=== PATIENT | male | born 1935 | race Caucasian/White ===

== ENCOUNTER 2017-05-25 08:14 | Inpatient (IN) ==
--- NOTE | 2017-05-25 08:56 | Diag Imaging Result Doc PS360 ---
EXAM: CHEST-PORTABLE HISTORY: sob/cp TECHNIQUE: AP portable upright at 0840 COMMENT: The patient is rotated slightly to the right. There are severe degenerative changes in the right shoulder. The heart size and pulmonary vascularity are within normal limits. There are no previous studies. There is no evidence of acute pulmonary disease. IMPRESSION: No acute disease. Electronically signed by Artis Avery 05/25/2017 8:53 AM
[2017-05-25 09:03] LABS: BASO% 0.1 % (0.0-0.8); EOS# 0.02 X1000 (0.0-0.7); EOS% 0.1 % (0.0-10.0); HEMATOCRIT 32.7 % (42.0-52.0); HEMOGLOBIN 10.3 g/dL (14.0-18.0); IMM GRAN# 0.46 X1000 (0.0-0.04); IMM GRAN% 1.6 % (0.0-0.5); LYMPH# 1.28 X1000 (1.2-3.4); LYMPH% 4.4 % (20.5-51.1); MANUAL DIFF NEEDED? NO; MCH 31.1 PG (27-31); MCHC 31.5 g/dL (33-37); MCV 98.8 FL (81-99); MONO# 1.26 X1000 (0.11-0.59); MONO% 4.3 % (1.7-9.3); MPV 9.5 FL (7.4-10.4); NEUT% 89.5 % (42.2-75.2); PLT 437 X1000 (130-400); RBC 3.31 XMIL (4.7-6.1)
[2017-05-25 09:11] LABS: INR 1.15; PROTIME 12.2 Seconds (9.2-11.7); PTT 29.3 Seconds (22.0-36.0)
[2017-05-25] MEDS ORDERED: NS 1,000 ML IV ONE (09:44)
[2017-05-25] MEDS ORDERED: ZOSYN 3.375 GM in NS 50 ML IV ONE (09:45)
[2017-05-25 10:09] LABS: ALBUMIN 2.9 g/dL (3.5-5.0); CALCIUM 9.3 mg/dL (8.8-10.2); MAGNESIUM 1.9 mg/dL (1.5-2.7); POTASSIUM 4.2 mmol/L (3.5-5.1); TOTAL BILIRUBIN 0.63 mg/dL (0.20-1.00); TOTAL PROTEIN 6.9 g/dL (6.3-8.3)
[2017-05-25 10:59] LABS: URINE CULTURE NEEDED? NO; URINE MICRO REVIEW NEEDED? NO; URINE SOURCE CATH
[2017-05-25 11:03] LABS: UR EPITHELIAL CELLS <10 /HPF (<10); URINE BACTERIA NEGATIVE /HPF; URINE RBC <10 /HPF (<10); URINE WBC <10 /HPF (<10)
[2017-05-25 11:04] LABS: BILIRUBIN URINE NEGATIVE (NEGATIVE); BLOOD URINE MODERATE (NEGATIVE); COLOR YELLOW; GLUCOSE URINE 200 mg/dL (NEGATIVE); LEUKOCYTES URINE NEGATIVE (NEGATIVE); NITRITE URINE NEGATIVE (NEGATIVE); PH URINE 5.5; PROTEIN URINE 50 mg/dL (NEGATIVE); SP GRAVITY URINE 1.011; TURBIDITY URINE CLEAR (CLEAR); UROBILINOGEN URINE NORMAL (NORMAL)
[2017-05-25] MEDS ORDERED: ZOFRAN IV PRN (12:39)
[2017-05-25] MEDS: LEVAQUIN 250 MG/D5W 250 MG/50 ML IVPB IV SCH (13:33)
[2017-05-25] MEDS: NS 1,000 ML IV SCH ×2 (13:33→23:35)
[2017-05-25] MEDS: ZOSYN 2.25 GM in NS 50 ML IV SCH ×2 (16:54→22:21)
[2017-05-25] MEDS: PERCOCET-5 PO PRN (23:39)
[2017-05-26] MEDS: ZOSYN 2.25 GM in NS 50 ML IV SCH ×4 (05:53→22:39)
[2017-05-26] MEDS: PERCOCET-5 PO PRN ×4 (05:54→21:39)
[2017-05-26] MEDS: SYNTHROID PO SCH (06:00)
[2017-05-26] MEDS: NS 1,000 ML IV SCH ×3 (08:17→22:39)
[2017-05-26] MEDS: PREDNISONE PO SCH (08:18)
--- NOTE | 2017-05-26 09:31 | Diag Imaging Result Doc PS360 ---
EXAM: CHEST-2 VIEWS HISTORY: cough, R side wheeze TECHNIQUE: AP and lateral chest COMMENT: There is considerable motion artifact on the lateral view. The lungs are not as well-expanded as on 05/25/2017. Possibility of mild or early pulmonary edema cannot be excluded. The heart size remains enlarged. IMPRESSION: Poor inspiration. Questionable pulmonary edema. Electronically signed by Artis Avery 05/26/2017 9:29 AM
[2017-05-26] MEDS: DUONEB (A & A) INH SCH ×3 (09:39→20:33)
[2017-05-27] MEDS: PERCOCET-5 PO PRN ×5 (01:40→19:10)
[2017-05-27] MEDS: NS 1,000 ML IV SCH ×3 (02:20→12:03)
[2017-05-27] MEDS: ZOSYN 2.25 GM in NS 50 ML IV SCH ×4 (05:52→22:38)
[2017-05-27] MEDS: SYNTHROID PO SCH (06:01)
[2017-05-27 07:04] LABS: EOS# 0.02 X1000 (0.0-0.7); EOS% 0.1 % (0.0-10.0); HEMATOCRIT 24.6 % (42.0-52.0); HEMOGLOBIN 7.8 g/dL (14.0-18.0); IMM GRAN# 0.21 X1000 (0.0-0.04); IMM GRAN% 0.9 % (0.0-0.5); LYMPH# 0.76 X1000 (1.2-3.4); LYMPH% 3.4 % (20.5-51.1); MCH 31.5 PG (27-31); MCHC 31.7 g/dL (33-37); MCV 99.2 FL (81-99); MONO# 0.83 X1000 (0.11-0.59); MONO% 3.7 % (1.7-9.3); MPV 9.3 FL (7.4-10.4); NEUT% 91.9 % (42.2-75.2); PLT 312 X1000 (130-400); RBC 2.48 XMIL (4.7-6.1)
[2017-05-27 07:15] LABS: CALCIUM 8.3 mg/dL (8.8-10.2); POTASSIUM 3.4 mmol/L (3.5-5.1)
[2017-05-27 07:30] LABS: MANUAL DIFF NEEDED? NO
[2017-05-27] MEDS: DUONEB (A & A) INH SCH ×3 (07:45→20:00)
[2017-05-27 08:50] LABS: IRON SATURATION 25 %; TIBC 137 ug/dL; TOTAL IRON 34 ug/dL (53-167); UNBOUND IRON 103 ug/dL (112-346)
[2017-05-27] MEDS ORDERED: POTASSIUM CHLORIDE 20% LIQUID PO ONE (08:53)
[2017-05-27] MEDS: PREDNISONE PO SCH (10:11)
[2017-05-27] MEDS: LEVAQUIN 250 MG/D5W 250 MG/50 ML IVPB IV SCH (14:15)
[2017-05-28] MEDS: PERCOCET-5 PO PRN ×2 (00:28→05:44)
[2017-05-28] MEDS: ZOSYN 2.25 GM in NS 50 ML IV SCH ×4 (05:44→22:56)
[2017-05-28] MEDS: NS 1,000 ML IV SCH ×2 (06:33)
[2017-05-28] MEDS: SYNTHROID PO SCH (06:33)
[2017-05-28 06:36] LABS: EOS# 0.03 X1000 (0.0-0.7); EOS% 0.1 % (0.0-10.0); HEMATOCRIT 27.4 % (42.0-52.0); HEMOGLOBIN 8.5 g/dL (14.0-18.0); LYMPH# 0.91 X1000 (1.2-3.4); LYMPH% 4.2 % (20.5-51.1); MANUAL DIFF NEEDED? YES; MCH 31.6 PG (27-31); MCV 101.9 FL (81-99); MONO# 0.81 X1000 (0.11-0.59); MONO% 3.7 % (1.7-9.3); MPV 9.1 FL (7.4-10.4); PLT 324 X1000 (130-400); RBC 2.69 XMIL (4.7-6.1)
[2017-05-28 06:57] LABS: CALCIUM 8.9 mg/dL (8.8-10.2); POTASSIUM 3.8 mmol/L (3.5-5.1)
[2017-05-28 07:35] LABS: LYMPHS 10 % (21-51); MONO 2 % (1-9)
[2017-05-28] MEDS: DUONEB (A & A) INH SCH ×3 (08:14→20:00)
[2017-05-28] MEDS: TYLENOL PO PRN (08:45)
[2017-05-28] MEDS: PREDNISONE PO SCH (08:45)
[2017-05-28] MEDS ORDERED: KLONOPIN PO ONE (09:08)
[2017-05-28] MEDS ORDERED: ROXICET PO ONE (09:08)
[2017-05-28] MEDS ORDERED: ROXICET PO SCH (09:15)
[2017-05-28] MEDS: PLAVIX PO SCH (11:03)
[2017-05-28] MEDS: HYDROCODONE/APAP 7.5-325/15 ML PO PRN ×3 (11:04→20:49)
[2017-05-28] MEDS: TRENTAL PO SCH ×2 (13:19→20:49)
[2017-05-28] MEDS: NEURONTIN PO SCH ×2 (13:19→20:49)
--- NOTE | 2017-05-28 14:33 | Diag Imaging Result Doc PS360 ---
US RENAL 2 (RETROPER) COMPLETE - 05/28/2017 INDICATION: decreased renal function TECHNIQUE: COMPARISON: None FINDINGS: The kidneys are extremely hyperechogenic. The kidneys are also atrophic and multicystic. There are several cysts measuring up to 2 cm bilaterally. There are also bilateral nonobstructing renal stones. This measures 13 mm on the right and 7 mm on the left. No hydronephrosis. The urinary bladder is collapsed by a Whatley catheter and otherwise normal. The right kidney measures 9.8 x 3.8 x 5 cm. Cortex measures 7 mm. The left kidney measures 9 x 4.3 x 4.1 cm. Cortex measures 6 mm. IMPRESSION: 1. Severe bilateral renal atrophy and hyperechogenicity. 2. Multicystic kidneys. 3. Bilateral nonobstructing renal stones. Electronically signed by Star Torrez 05/28/2017 2:31 PM
[2017-05-28] MEDS: KLONOPIN PO SCH (20:49)
[2017-05-29] MEDS: SYNTHROID PO SCH ×2 (05:22→06:33)
[2017-05-29] MEDS: ZOSYN 2.25 GM in NS 50 ML IV SCH ×3 (05:22→16:20)
[2017-05-29 07:03] LABS: HEMATOCRIT 25.4 % (42.0-52.0); HEMOGLOBIN 7.8 g/dL (14.0-18.0); MCH 31.5 PG (27-31); MCHC 30.7 g/dL (33-37); MCV 102.4 FL (81-99); RBC 2.48 XMIL (4.7-6.1)
[2017-05-29 07:21] LABS: ALBUMIN 2.5 g/dL (3.5-5.0); CALCIUM 8.7 mg/dL (8.8-10.2); POTASSIUM 3.7 mmol/L (3.5-5.1)
[2017-05-29] MEDS: PLAVIX PO SCH (08:04)
[2017-05-29] MEDS: DUONEB (A & A) INH SCH ×3 (08:04→20:12)
[2017-05-29] MEDS: NEURONTIN PO SCH ×3 (08:04→22:04)
[2017-05-29] MEDS: TRENTAL PO SCH ×3 (08:04→22:04)
[2017-05-29] MEDS: PREDNISONE PO SCH (08:04)
[2017-05-29] MEDS: TYLENOL PO PRN (08:08)
[2017-05-29 11:55] LABS: UR CREATININE 35.4 mg/dL (14-26); UR CREATININE TOTAL 495.6 mg/24 (800-1800); UR PROTEIN 86.5 mg/dL
[2017-05-29] MEDS ORDERED: NS 250 ML ONE (17:09)
[2017-05-29] MEDS: HYDROCODONE/APAP 7.5-325/15 ML PO PRN ×2 (17:16→22:04)
[2017-05-29] MEDS: MAXIPIME 1 GM in NS 50 ML IV SCH (17:17)
[2017-05-29] MEDS: KLONOPIN PO SCH (22:04)
[2017-05-30] MEDS: MAXIPIME 1 GM in NS 50 ML IV SCH ×2 (06:08→17:40)
[2017-05-30] MEDS: SYNTHROID PO SCH (06:08)
[2017-05-30 07:18] LABS: HEMOGLOBIN 8.3 g/dL (14.0-18.0); MCH 31.4 PG (27-31); MCHC 30.7 g/dL (33-37); MCV 102.3 FL (81-99); MPV 9.4 FL (7.4-10.4); RBC 2.64 XMIL (4.7-6.1)
[2017-05-30 07:35] LABS: ALBUMIN 2.4 g/dL (3.5-5.0); CALCIUM 9.1 mg/dL (8.8-10.2); IRON SATURATION 30 %; POTASSIUM 3.8 mmol/L (3.5-5.1); TIBC 176 ug/dL; TOTAL IRON 52 ug/dL (53-167); UNBOUND IRON 124 ug/dL (112-346)
[2017-05-30 08:01] LABS: FERRITIN 1000 ng/mL (30-400)
[2017-05-30] MEDS: DUONEB (A & A) INH SCH ×3 (08:17→20:10)
[2017-05-30] MEDS: TRENTAL PO SCH ×3 (09:29→17:35)
[2017-05-30] MEDS: PREDNISONE PO SCH (09:29)
[2017-05-30] MEDS: PLAVIX PO SCH (09:30)
[2017-05-30] MEDS: NEURONTIN PO SCH ×3 (09:30→18:22)
[2017-05-30] MEDS ORDERED: KLONOPIN PO SCH (09:31)
[2017-05-30] MEDS ORDERED: PREDNISONE PO SCH (09:34)
[2017-05-30] MEDS: ZOLOFT PO SCH (13:26)
[2017-05-30] MEDS: DOXYCYCLINE PO SCH ×2 (15:59→21:36)
[2017-05-30] MEDS: HYDROCODONE/APAP 7.5-325/15 ML PO SCH ×3 (16:04→21:35)
[2017-05-30] MEDS ORDERED: DESYREL PO SCH (21:00)
[2017-05-31] MEDS: SYNTHROID PO SCH (06:05)
[2017-05-31] MEDS: MAXIPIME 1 GM in NS 50 ML IV SCH (06:05)
[2017-05-31 06:53] LABS: HEMATOCRIT 29.3 % (42.0-52.0); MCH 30.7 PG (27-31); MCHC 30.7 g/dL (33-37); RBC 2.93 XMIL (4.7-6.1)
[2017-05-31 07:14] LABS: ALBUMIN 2.8 g/dL (3.5-5.0); CALCIUM 8.8 mg/dL (8.8-10.2); POTASSIUM 3.9 mmol/L (3.5-5.1)
[2017-05-31 07:38] VITALS: BP 130/76
[2017-05-31] MEDS: DUONEB (A & A) INH SCH (08:09)
[2017-05-31] MEDS: HYDROCODONE/APAP 7.5-325/15 ML PO SCH ×2 (08:47→15:25)
[2017-05-31] MEDS: NEURONTIN PO SCH ×2 (08:50→15:24)
[2017-05-31] MEDS: TRENTAL PO SCH ×2 (08:50→15:24)
[2017-05-31] MEDS: ZOLOFT PO SCH (08:50)
[2017-05-31] MEDS: PLAVIX PO SCH (08:50)
[2017-05-31] MEDS ORDERED: OMNICEF PO SCH (11:00)
[2017-05-31] MEDS: DOXYCYCLINE PO SCH (11:30)
== END 2017-05-31 12:00 | disposition home or self-care (01) ==
LOC: ED 08:14 → 3N 12:36
PROVIDERS: ADMIT Internal Medicine; ATTEND Internal Medicine

== ENCOUNTER 2017-06-21 00:18 | Inpatient (IN) ==
[2017-06-21] MEDS ORDERED: NS 1,000 ML IV ONE ×2 (00:34→01:34)
[2017-06-21] MEDS ORDERED: NS 500 ML ONE (00:49)
--- NOTE | 2017-06-21 00:52 | ED EKG INTERP ---
This chart was entered by Janet Rosales Scribe, acting as scribe for Rachid Varghese MD. EKG Interpretation - EKG Time of EKG reading by physician:: 00:13 EKG Read and Signed by:: Rachid Varghese EKG Interpretation (*Must complete 3 of following elements*): Abnormal Rate: 110 Rhythm: sinus tachycardia [place]: left (left axis deviation) QRS: RBB (incomplete) VA Interval: normal ST Wave: normal Attestation - Physician/ EVON Attestation Patient care was provided by Advanced Practice Provider:: No The physician spent face to face time with patient:: Yes Advanced Practice Provider documentation review:: Supervising physician onsite and consulted in the evaluation and care of this patient. The physician did have a face to face encounter with the patient. This chart was documented by the indicated scribe, (Janet Rosales Scribe) and accurately reflects the services I performed and decisions made by me, Rachid Tolbert MD, as attested by the provider's signature.
[2017-06-21] MEDS ORDERED: NS 310 ML IV ONE (01:03)
[2017-06-21 01:16] LABS: BASO% 0.5 % (0.0-0.8); EOS# 0.06 X1000 (0.0-0.7); EOS% 0.1 % (0.0-10.0); HEMATOCRIT 14.8 % (42.0-52.0); HEMOGLOBIN 4.5 g/dL (14.0-18.0); IMM GRAN# 8.62 X1000 (0.0-0.04); IMM GRAN% 17.3 % (0.0-0.5); LYMPH% 4.8 % (20.5-51.1); MANUAL DIFF NEEDED? YES; MCH 30.4 PG (27-31); MCHC 30.4 g/dL (33-37); MONO# 3.11 X1000 (0.11-0.59); MONO% 6.2 % (1.7-9.3); MPV 10.4 FL (7.4-10.4); NEUT% 71.1 % (42.2-75.2); PLT 226 X1000 (130-400); RBC 1.48 XMIL (4.7-6.1)
[2017-06-21 01:18] LABS: INR 1.22
[2017-06-21 01:21] LABS: ALBUMIN 2.5 g/dL (3.5-5.0); CALCIUM 8.3 mg/dL (8.8-10.2); POTASSIUM 5.8 mmol/L (3.5-5.1); TOTAL BILIRUBIN 0.11 mg/dL (0.20-1.00); TOTAL PROTEIN 4.3 g/dL (6.3-8.3)
[2017-06-21] MEDS ORDERED: ZOSYN 3.375 GM in NS 50 ML IV ONE (01:21)
[2017-06-21] MEDS ORDERED: VANCOMYCIN 1 GM/NS 1 GM/250 ML IVPB IV ONE (01:23)
[2017-06-21 01:28] LABS: BANDS 5 % (0-1); LYMPHS 2 % (21-51); NRBC 2 % (0-0)
[2017-06-21] MEDS ORDERED: NS 1,000 ML ONE (01:34)
--- NOTE | 2017-06-21 01:39 | PROVIDER DOCUMENTATION ---
This chart was entered by Janet Rosales Scribe, acting as scribe for Rachid Varghese MD. HPI-Fever - General Chief Complaint: Weakness Stated Complaint: ams Time Seen by Provider: 06/21/17 00:20 Source: patient, EMS, old records Allergies/Adverse Reactions: Patient Allergies Allergy/AdvReac Type Severity Reaction Status Date / Time No Known Allergies Allergy Verified 05/25/17 08:56 Home Medications: Home Medication List Medication Instructions Recorded Confirmed Last Taken Type Gabapentin [Neurontin] 300 mg PO TID 05/25/17 06/21/17 06/19/17 History Levothyroxine [Synthroid] 112 microgm PO DAILY 05/25/17 06/21/17 06/20/17 History Prednisone [Deltasone] 20 mg PO DAILY 05/25/17 06/21/17 06/20/17 History Clopidogrel [Plavix] 75 mg PO DAILY #30 tablet 05/31/17 06/21/17 06/19/17 Rx Pentoxifylline E.r. [Trental] 400 mg PO TID #90 tablet 05/31/17 06/21/17 Rx Sertraline [Zoloft] 50 mg PO QAM #30 tablet 05/31/17 06/21/17 06/19/17 Rx Trazodone [Desyrel] 50 mg PO QHS #30 tablet 05/31/17 06/21/17 06/19/17 Rx l Gasseri/B Bifidum/B Longum 1 each PO DAILY 06/21/17 06/21/17 06/19/17 History [[facility] [facility]] - History of Present Illness-Fever Nature of Presenting Problem: Patient is an 82 year old male who presents in the ED via EMS for altered mental status. EMS states patient has complained of weakness as well as sores on his feet, and states patient was also found to be hyperglycemic and hypotensive. Patient states he is cold and has chills, and states he has also had loss of appetite over the last few days. He denies pain, cough, and any other symptoms at this time. 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 denies: cough Similar Symptoms Previously?: No Recently seen or treated by another doctor?: No - Glascow Coma Score Best Eye Response (Center): (4) open spontaneously Best Verbal Response (Center): (5) oriented Best Motor Response (Center): (6) obeys commands Center Total: 15 Review of Systems - Adult - REVIEW OF SYSTEMS - ADULT Constitutional: reports: see HPI, chills, other (decreased appetite). denies: fever Eyes: reports: no symptoms reported Ears, Nose, Mouth & Throat: reports: no symptoms reported Cardiovascular: reports: no symptoms reported Respiratory: reports: no symptoms reported. denies: cough Gastrointestinal: reports: no symptoms reported Genitourinary: reports: no symptoms reported Musculoskeletal: reports: no symptoms reported Integumentary: reports: no symptoms reported Neurological: reports: see HPI, other (altered mental status) Psychiatric: reports: no symptoms reported Endocrine: reports: no symptoms reported Hematologic/Lymphatic: reports: no symptoms reported Allergic/Immunologic: reports: no symptoms reported All Other Systems: Reviewed and Negative Past History - Adult - PAST MEDICAL HISTORY-ADULT Review of Records: reports: Old Records Reviewed, Nursing Assessment Review, Medications Reviewed Major Childhood Illnesses: reports: denies history Cardiovascular: reports: PVD Respiratory: reports: asthma Gastrointestinal: reports: other (colostomy) Obstetrical/Gynecological: reports: denies history Genitourinary: reports: ESRD, other (prostate issues) Musculoskeletal: reports: denies history Neurological: reports: other (neuropathy) Psychiatric: reports: anxiety, depression Endocrine/Immune: reports: thyroid disorder (hypothyroid) Other Conditions: reports: denies history - PRIOR SURGERIES/PROCEDURES Surgical/Procedure History: reports: bowel surgery (colostomy) - IMMUNIZATION STATUS Childhood Immunizations: See Nurse Assessment Flu Vaccine: See Nurse Assessment - FAMILY HISTORY Family History: reviewed, not pertinent - SOCIAL HISTORY Smoking: non-smoker Substance Use: none/never Alcohol Use Frequency: never Living Situation: family Physical Exam-General - PHYSICAL EXAM-ADULT Initial Vital Signs Reviewed: Yes - CONSTITUTIONAL General Appearance: alert, no apparent distress - EYES Eyes: PERRL/EOMI, pink conjunctivae - HEAD, EARS, NOSE, MOUTH & THROAT HENMT: normocephalic/atraumatic, moist mucous membranes - NECK Neck: full range of motion, supple - RESPIRATORY Respiratory: chest non-tender, lungs clear, normal breath sounds, no pleuratic chest pain, no respiratory distress, no accessory muscle use - CARDIOVASCULAR Cardiovascular: no edema, no gallop, no JVD, no murmur, tachycardia - GASTROINTESTINAL (ABDOMEN) Abdominal Exam: non tender, soft, no organomegaly, no pulsatile mass - LYMPHATIC Lymphatic: no adenopathy - MUSCULOSKELETAL Back Exam: normal inspection, no CVA tenderness, no vertebral tenderness Extremity: normal range of motion, pulse deficit (left foot with no palpable DP pulse), pedal edema (left foot with pitting pedal edema - cool to touch and pale ; right lower extremity with 2-3+ edema) - SKIN Integumentary: normal color, normal turgor, warm/dry, other (necrotic lesions to right first and second toe; ulceration to right medial ankle; ulceration to medial base of right great toe.) - NEUROLOGIC Neurologic: grossly normal, no motor/sensory deficits - PSYCHIATRIC Psych/Mental Status: normal mood/affect, oriented x 3 Progress - PLAN OF CARE/RESULTS Progress/Plan/Lab Results: Vital Signs - 8 hr 06/21/17 00:30 06/21/17 00:48 06/21/17 01:10 Temperature 97.5 F L Pulse Rate 108 H 105 H 102 H Respiratory Rate 18 16 18 Blood Pressure 83/48 96/46 106/54 O2 Sat by Pulse Oximetry 92 L 95 100 06/21/17 01:22 Temperature Pulse Rate 105 H Respiratory Rate 19 Blood Pressure 104/93 O2 Sat by Pulse Oximetry 98 Laboratory Results - last 24 hr 06/21/17 06/21/17 06/21/17 00:35 00:35 00:35 WBC 49.87 H RBC 1.48 L Hgb 4.5 L* Hct 14.8 L MCV 100.0 H MCH 30.4 MCHC 30.4 L RDW Std Deviation 15.3 H Plt Count 226 MPV 10.4 Immature Gran % (Auto) 17.3 H Neut % (Auto) 71.1 Lymph % (Auto) 4.8 L Nelson % (Auto) 6.2 Eos % (Auto) 0.1 Baso % (Auto) 0.5 Immature Gran # (Auto) 8.62 H Neut # (Auto) 35.41 H Lymph # (Auto) 2.40 Nelson # (Auto) 3.11 H Eos # (Auto) 0.06 Baso # (Auto) 0.27 H Segmented Neutrophils 77 H Band Neutrophils 5 H Lymphocytes 2 L Metamyelocytes 3.0 Myelocytes 6.0 Nucleated RBCs 2 H Pathologist Review Atypical Lymphocytes 2.0 Unidentified Cells 5.0 PT INR PTT (Actin FS) Sodium 132 L Potassium 5.8 H Chloride 97 L Carbon Dioxide 11 L Anion Gap 24 BUN 94 H Creatinine 4.0 H Estimated GFR/1.73 m2 15 BUN/Creatinine Ratio 24 Glucose 294 H POC Glucose 313 H D Calculated Osmolality 304 Calcium 8.3 L Total Bilirubin 0.11 L AST 8 L ALT 9 L Alkaline Phosphatase 56 Creatine Kinase 10 L Troponin T Total Protein 4.3 L Albumin 2.5 L Globulin 1.8 Albumin/Globulin Ratio 1.4 Plasma Lactate 06/21/17 06/21/17 06/21/17 00:35 00:35 00:35 WBC RBC Hgb Hct MCV MCH MCHC RDW Std Deviation Plt Count MPV Immature Gran % (Auto) Neut % (Auto) Lymph % (Auto) Nelson % (Auto) Eos % (Auto) Baso % (Auto) Immature Gran # (Auto) Neut # (Auto) Lymph # (Auto) Nelson # (Auto) Eos # (Auto) Baso # (Auto) Segmented Neutrophils Band Neutrophils Lymphocytes Metamyelocytes Myelocytes Nucleated RBCs Pathologist Review Atypical Lymphocytes Unidentified Cells PT 13.0 H INR 1.22 PTT (Actin FS) 23.0 Sodium Potassium Chloride Carbon Dioxide Anion Gap BUN Creatinine Estimated GFR/1.73 m2 BUN/Creatinine Ratio Glucose POC Glucose Calculated Osmolality Calcium Total Bilirubin AST ALT Alkaline Phosphatase Creatine Kinase Troponin T 0.013 Total Protein Albumin Globulin Albumin/Globulin Ratio Plasma Lactate 7.9 H Orders Category Date Time Status Cardiac Monitoring DIRECTED Care 06/21/17 00:32 Active FSBS [Finger Stick Blood Sugar (ED)] DIRECTED Care 06/21/17 00:18 Active IV Insertion ORDERED Care 06/21/17 00:32 Completed Notify of + Sepsis Screen NOW Care 06/21/17 00:32 Active Transfuse .Give-Transfuse Care 06/21/17 01:18 Active CHEST-PORTABLE [RAD] Stat Exams 06/21/17 00:33 Taken BLOOD CULTURE [BLDCUL] Stat Lab 06/21/17 00:35 Results CBC WITH DIFF [HEME] Stat Lab 06/21/17 00:35 Completed CK PROFILE [SP CHEM] Stat Lab 06/21/17 00:35 Completed COMPREHENSIVE METABOLIC PANEL [CHEM] Stat Lab 06/21/17 00:35 Completed LACTATE, PLASMA [CHEM] Stat Lab 06/21/17 00:35 Completed LRPC (RED CELLS) [BBK] Stat Lab 06/21/17 00:35 Received PROTIME WITH INR [COAG] Stat Lab 06/21/17 00:35 Completed PTT [COAG] Stat Lab 06/21/17 00:35 Completed TROPONIN T Stat Lab 06/21/17 00:35 Completed TYPE & SCREEN [BBK] Stat Lab 06/21/17 00:35 Received URINALYSIS W/POSS RFLX CULT-1 [URINALYSIS] Stat Lab 06/21/17 01:10 Ordered 0.9% Sodium Chloride Inj [Ns] 1,000 ml Med 06/21/17 00:34 Discontinued IV 999 mls/hr 0.9% Sodium Chloride Inj [Ns] 1,000 ml Med 06/21/17 01:34 Active IV 999 mls/hr 0.9% Sodium Chloride Inj [Ns] 310 ml Med 06/21/17 01:03 Discontinued IV Wide Open 0.9% Sodium Chloride Inj [Ns] 500 ml Med 06/21/17 00:49 Discontinued .ROUTE As Directed Piperacillin/Tazobactam [Zosyn] 3.375 gm Med 06/21/17 01:21 Active 0.9% Sodium Chloride Inj [Ns] 50 ml IV NOW Vancomycin 1 gm/Ns Med 06/21/17 01:23 Active 1 gm in 250 ml IV NOW Oxygen Device Stat Oth 06/21/17 00:32 Active EKG [EKG] Stat Ther 06/21/17 00:18 Ordered Result Diagrams: 06/21/17 00:35 06/21/17 00:35 - XRAY 1 XRAY Study: Chest Impression: Normal Departure - Departure Date of Disposition Decision: 06/21/17 Time of Disposition Decision: 01:35 DIAGNOSIS: Septic shock Cellulitis Qualifiers: Site of cellulitis of extremity: lower extremity Laterality: right Anemia Qualifiers: Anemia type: unspecified type Qualified Code(s): D64.9 - Anemia, unspecified Renal failure (ARF), acute on chronic Qualifiers: Acute renal failure type: unspecified Chronic kidney disease stage: unspecified stage Qualified Code(s): N17.9 - Acute kidney failure, unspecified; N18.9 - Chronic kidney disease, unspecified Disposition: ADMITTED INPATIENT 09 Certified Medical Emergency: Emergent Condition: Stable Referrals and Follow-Ups: None,PCP [Primary Care Provider] - - Critical Care Note This patient required my direct & personal management of CC.: Yes Total Time (mins): 75 Critical Care Statement: This patient required my direct personal management to treat or rule out processes, the absence of which, could potentiallly result in sudden, clinically significant life or limb threatening deterioration. Attestation - Physician/ EVON Attestation Patient care was provided by Advanced Practice Provider:: No The physician spent face to face time with patient:: Yes Advanced Practice Provider documentation review:: Supervising physician onsite and consulted in the evaluation and care of this patient. The physician did have a face to face encounter with the patient. This chart was documented by the indicated scribe, (Janet Rosales Scribe) and accurately reflects the services I performed and decisions made by me, Rachid Tolbert MD, as attested by the provider's signature.
[2017-06-21 01:55] LABS: URINE MICRO REVIEW NEEDED? NO; URINE SOURCE CATH
[2017-06-21 01:58] LABS: BILIRUBIN URINE NEGATIVE (NEGATIVE); BLOOD URINE MODERATE (NEGATIVE); COLOR YELLOW; GLUCOSE URINE 100 mg/dL (NEGATIVE); LEUKOCYTES URINE MODERATE (NEGATIVE); NITRITE URINE NEGATIVE (NEGATIVE); PH URINE 5.5; PROTEIN URINE 30 mg/dL (NEGATIVE); SP GRAVITY URINE 1.012; TURBIDITY URINE CLEAR (CLEAR); UROBILINOGEN URINE NORMAL (NORMAL)
[2017-06-21 01:59] LABS: UR EPITHELIAL CELLS <10 /HPF (<10); URINE BACTERIA NEGATIVE /HPF; URINE CULTURE NEEDED? YES; URINE RBC 20-40 /HPF (<10); URINE WBC <10 /HPF (<10)
[2017-06-21] MEDS ORDERED: DILAUDID IV ONE (02:45)
[2017-06-21] MEDS ORDERED: SODIUM BICARBONATE 8.4% IV PUSH ONE (03:13)
[2017-06-21] MEDS ORDERED: HUMULIN R IV ONE (03:13)
[2017-06-21] MEDS ORDERED: CALCIUM GLUCONATE 1 GM in NS 50 ML IV ONE (03:14)
[2017-06-21] MEDS ORDERED: ALBUTEROL 0.5% INH CONC FOR HYPERKALEMIA INH ONE (03:14)
[2017-06-21] MEDS ORDERED: ZOFRAN IV PRN (03:20)
[2017-06-21] MEDS ORDERED: VANCOMYCIN IV PER PHARMACY MISC SCH (03:20)
[2017-06-21] MEDS ORDERED: LEVOPHED 8 MG in D5 1/2 NS 250 ML IV SCH (03:20)
[2017-06-21] MEDS ORDERED: VANCOMYCIN IV ONE (04:00)
[2017-06-21] MEDS ORDERED: NS IV ONE (04:00)
[2017-06-21] MEDS: NS 1,000 ML IV SCH ×3 (04:26→22:20)
[2017-06-21 05:02] LABS: ALLEN TEST YES; BE -13.6 mmoll (-3.0-3.0); BLOOD TYPE ARTERIAL; DRAW SITE R RADIAL; METHB 1.6 % (0.0-1.5); O2(CT) 11.6 mL/dL (15.0-23.0); PCO2(98.6) 28 mmHg (35-45); PO2(98.6) 84 mmHg (60-100); SAMPLE BLOOD; THB 8.6 g/dL (11.5-17.4); pH(98.6) 7.25 (7.35-7.45)
[2017-06-21 05:03] LABS: MODALITY CANNULA
[2017-06-21 05:08] LABS: BASO% 0.5 % (0.0-0.8); EOS# 0.02 X1000 (0.0-0.7); EOS% 0.1 % (0.0-10.0); HEMOGLOBIN 6.8 g/dL (14.0-18.0); IMM GRAN# 5.13 X1000 (0.0-0.04); IMM GRAN% 13.2 % (0.0-0.5); LYMPH# 3.45 X1000 (1.2-3.4); LYMPH% 8.9 % (20.5-51.1); MANUAL DIFF NEEDED? YES; MCH 29.3 PG (27-31); MCHC 32.4 g/dL (33-37); MCV 90.5 FL (81-99); MONO# 2.36 X1000 (0.11-0.59); MONO% 6.1 % (1.7-9.3); MPV 10.2 FL (7.4-10.4); NEUT% 71.2 % (42.2-75.2); PLT 173 X1000 (130-400); RBC 2.32 XMIL (4.7-6.1)
[2017-06-21 05:26] LABS: ALBUMIN 2.2 g/dL (3.5-5.0); CALCIUM 7.4 mg/dL (8.8-10.2); MAGNESIUM 1.9 mg/dL (1.5-2.7); POTASSIUM 4.6 mmol/L (3.5-5.1); TOTAL BILIRUBIN 0.28 mg/dL (0.20-1.00)
--- NOTE | 2017-06-21 05:48 | HISTORY AND PHYSICAL ---
PRIMARY CARE PROVIDER: Roderick Norman MD CHIEF COMPLAINT: Weakness. HISTORY OF PRESENT ILLNESS: This is an 82-year-old male who presented to the emergency room this afternoon by EMS. The patient complained of weakness as well as apparently sores on his right foot as well as altered mental status. He was found to be hypotensive. The patient apparently had chills but no fever and loss of appetite for several days. He had complaint of low back pain. He does have chronic pain. Also had a cough in the last few days but was not producing any sputum. The patient was on interview found to be confused. He was oriented to person, somewhat to place and somewhat to time. The patient had recently been admitted on 05/25/2017 for sepsis secondary to right lower extremity cellulitis. He was treated with IV antibiotics and then sent home with 10 days of antibiotics, according to the at the bedside. The patient again was noted to have right lower extremity ulcerations on his right ankle and necrotic-appearing lesions to his right 1st and 2nd toes. Laboratory data was obtained as well as a chest x-ray in the emergency room. Chest x-ray was NAD. Laboratory data was significant for a WBC of 49.87, hemoglobin of 4.5, hematocrit of 14.8, a BUN of 94, creatinine of 4, a glucose of 294 and a plasma lactate of 7.9. He will be admitted inpatient to ICU for further evaluation and treatment. PAST MEDICAL HISTORY: 1. Primary hypothyroidism. 2. Degenerative disk disease. 3. Chronic low back pain. 4. Right lower extremity cellulitis. PREVIOUS SURGICAL HISTORY: 1. Inguinal hernia. 2. Partial colectomy with placement of a colostomy. ALLERGIES: No known drug allergies. FAMILY HISTORY: Family history was reviewed with the and found to be noncontributory to this admission. SOCIAL HISTORY: Former smoker. No alcohol. No illicit drugs. Lives at home with his . HOME MEDICATIONS: 1. Prednisone 20 mg p.o. daily. 2. Neurontin 300 mg p.o. t.i.d. 3. Synthroid 112 mcg p.o. daily. 4. Plavix 75 mg p.o. daily. 5. Trental 400 mg p.o. t.i.d. 6. Trazodone 50 mg p.o. at bedtime. 7. Zoloft 50 mg p.o. q.a.m. 8. [employer] 1 p.o. daily. REVIEW OF SYSTEMS: Fourteen point review of systems conducted with the patient and at the bedside. Pertinent positives listed above in the HPI. All other systems reviewed and found to be negative. PHYSICAL EXAMINATION: VITAL SIGNS: Temperature 97.5 degrees, pulse 102, respirations 16, blood pressure 127/71, oxygen saturation 100% on 2 L nasal cannula. GENERAL: Very ill-appearing 82-year-old male lying in the ER stretcher. He is confused. Oriented to person, somewhat to place, disoriented to situation. HEENT: Head is atraumatic, normocephalic. Pupils equal, round, sluggishly reactive to light. Extraocular eye movement could not be tested as patient will not fully follow commands. Sclerae is anicteric. Conjunctivae is very pale. Oral mucosa is dry. NECK: Supple. No JVD. No thyromegaly. Trachea is midline. CARDIAC: S1-S2 appreciated. No murmurs, gallops, rubs. LUNGS: Clear to auscultation bilaterally. No rhonchi, wheezes or rales. ABDOMEN: Soft, nondistended, nontender. Midline scar noted from previous surgery. Right lower quadrant colostomy with very dark to black stool. EXTREMITIES: Right lower extremity with necrotic-appearing ulcerations to the right 1st and 2nd toes, ulceration to the right medial ankle. Right lower extremity is warm to touch with 3+ pitting edema. Left lower extremity, no palpable pulse, extremity is cool to touch, 2+ pitting edema. SKIN: Warm, dry, very pale. Lesions noted to right lower extremity as noted above in extremity assessment. GENITOURINARY: No bladder distention. Whatley catheter has been ordered to be placed. Otherwise deferred. NEUROLOGICAL: Oriented to person, place, somewhat to situation. Cranial nerves 2-12 appear to be grossly intact although the patient is lethargic. DIAGNOSTIC DATA: Chest x-ray, NAD. Laboratory data: WBC 49.87, hemoglobin 4.5 , hematocrit of 14.8, platelet count 226,000. Sodium 132, potassium 5.8, chloride 97, carbon dioxide 11, BUN 94, creatinine 4.0, glucose 294, plasma lactate 7.9. Urine analysis is pending. ASSESSMENT AND PLAN: 1. Septic shock. Fluid bolusing has been completed in the emergency room. We will continue normal saline at 100 mL an hour. Two units of packed red blood cells will be transfused stat. We will trend hemoglobin and hematocrit. Levophed has been added to the patient's medication profile. Patient is normotensive at this time. He will be placed in ICU for monitoring. We will start on vancomycin and Zosyn renally dosed. 2. Right lower extremity cellulitis. We will consult Dr. Scooter Ruiz. Patient has been started on vancomycin and Zosyn. Blood cultures and wound cultures have been ordered. 3. Chronic kidney disease, stage 4. Patient has a baseline creatinine of around 2.4. Creatinine is now 4. He appears to be very fluid volume noted depleted. Fluid bolusing has been given. We will give packed red blood cells. Consult Dr. Mitchell. 4. Probable upper gastrointestinal bleed. The patient was noted to have very dark to black stool in his ostomy bag. Occult stools have been ordered. We will consult GI for possible endoscopy. 5. Hyperkalemia. Patient's blood glucose is elevated. We will give 6 units regular insulin IV. We will give megadose albuterol treatment for hyperkalemia. We will also give sodium bicarbonate as the patient's potassium is likely to rise from blood transfusion. 6. Severe anemia. This is likely lack secondary to gastrointestinal bleed. This patient is on Plavix from what I can tell for peripheral vascular disease. We will hold this at this time. Transfuse 2 units packed red blood cells immediately. The patient will likely need an additional 2 units of packed red blood cells. The patient will be in ICU. We will start Protonix [address] Norman is his primary care provider. He will resume care of the patient tomorrow morning. The patient will be held NPO at this time. Recheck laboratory data. Further recommendations per patient clinical course. Critical Care time 45 minutes Dictated by CHITO Kimble for Tiago Lindquist MD cc: CHITO Kimble MD Timothy P. Weirich, MD Leroy F. Harris, MD Reginald D. Gladish, MD MTDD
[2017-06-21 05:51] LABS: BANDS 3 % (0-1); LYMPHS 3 % (21-51); MONO 2 % (1-9)
[2017-06-21] MEDS: SYNTHROID PO SCH (07:31)
[2017-06-21] MEDS: ZOSYN 2.25 GM in NS 50 ML IV SCH ×4 (08:39→20:44)
[2017-06-21] MEDS: ZOLOFT PO SCH (08:42)
[2017-06-21] MEDS: PREDNISONE PO SCH (08:42)
[2017-06-21] MEDS ORDERED: PROTONIX 80 MG in NS 80 ML IV ONE (09:42)
--- NOTE | 2017-06-21 09:57 | Diag Imaging Result Doc PS360 ---
EXAM: CHEST-PORTABLE INDICATION: hypotension TECHNIQUE: One view COMPARISON: 05/26/2017 FINDINGS: There is evidence of prior granulomatous disease, stable. There is suggestion of minimal subsegmental atelectasis at the left lung base. The lungs are grossly clear, otherwise. There is no discrete pleural fluid collection or pneumothorax. The cardiomediastinal silhouette and central vasculature are grossly unremarkable. IMPRESSION: Suggestion of minimal left basilar atelectasis. No definite acute pathology, otherwise. Electronically signed by Stefan Christianson 06/21/2017 9:55 AM
--- NOTE | 2017-06-21 10:04 | PROGRESS NOTE ---
DATE: 06/21/2017 HISTORY OF PRESENT ILLNESS: This is an 82-year-old male who presented to the emergency room. His doctor is Dr. Norman. He complained of weakness as well as apparent sores on his right foot, altered mental status. Found to be hypotensive. Patient apparently had chills. No fever. Loss of appetite but he has had loss of appetite for several days. Complains of low back pain. He does have chronic pain. He had a cough the last couple of days but no productive sputum. He was confused on presentation. Oriented to person, somewhat to place, and somewhat to time. He was admitted back on 05/25/2017 with sepsis secondary to right lower extremity cellulitis. Treated with IV antibiotics. He was noted to have lower extremity ulcerations in the right ankle, necrotic appearing lesions in the right 1st and 2nd toes. Lab data showed a white blood cell count of 49,870, hemoglobin was 4, hematocrit was 14. BUN 94, creatinine 4, glucose was 294. Plasma lactate 7.9. PAST MEDICAL HISTORY: 1. Primary hypothyroidism. 2. Degenerative disk disease. 3. Chronic lower back pain. 4. Right lower extremity cellulitis. PAST SURGICAL HISTORY: 1. Inguinal hernia. 2. Partial colectomy, placement of colostomy. ALLERGIES: No known drug allergies. IMPRESSION: 1. The patient was admitted with septic shock, bruising. Had been fluid bolusing, took place in the emergency room. He has received now 3 units of packed red blood cells. Levophed had been added to this patient's medication and blood pressures improved. They put him on vancomycin and Zosyn. 2. Right lower extremity cellulitis. We will get Dr. Ruiz involved with this as well. Right now, on vancomycin and Zosyn. 3. Chronic kidney disease stage IV. Baseline creatinine 2.4. Creatinine is now 4 so acute on chronic. Continue to give fluids. We will get Dr. Mitchell to help. 4. Upper gastrointestinal bleed. Very dark black stools. Ask GI to help. We transfused him 3 units of packed red blood cells already. 5. Hyperkalemia. Blood sugar was grossly elevated. Gave 6 units of regular insulin and megadose of albuterol treatment and some sodium bicarbonate drip. 6. Severe anemia. Suspect secondary to gastrointestinal bleed. On Protonix 40 mg intravenous every 12 hours. PHYSICAL EXAMINATION: General: Today, he is awake and alert. He appears comfortable. Vital Signs: Temperature 96.7 degrees, pulse 100, respirations 16, blood pressure 89/42. Lungs: Clear anterolateral. Cardiovascular Examination: Regular rhythm and rate without murmur or S3. Abdomen: Soft. Skin: Warm and dry. Intake and Output: Urine output was 700 mL. LABORATORY DATA: White count when he came in was 38,930, hematocrit 21, platelet count 173,000 with a left shift, 71% neutrophils. Sodium 140, potassium 4.6, chloride 105, bicarb 15, BUN was 85, creatinine 3.5, his blood sugar was 183. Magnesium was 1.9. Transaminase is unremarkable. Albumin 2.2. Prothrombin time 13, PTT is 23. Urinalysis, 20-40 red blood cells. ABGs on arrival, pH was 7.25, pCO2 28, PO2 is 84, O2 saturation was 94%. Chest x-ray reviewed. Clear lung maldonado. I do not see any evidence of infiltrate. Vasculature unremarkable. There was a widening of the mediastinum. ASSESSMENT AND PLAN: 1. Admitted with sepsis. Saw where old cultures from 05/25/2017, blood culture grew out Pseudomonas aeruginosa. Also saw the leg culture from skin grew out Staphylococcus aureus, Pseudomonas aeruginosa, was sensitive to everything. The Staphylococcus aureus was sensitive to oxacillin. We will continue Zosyn and vancomycin for now. Blood pressures are improving and he has received a lot of volume. 2. Acute on chronic renal failure. Continue volume for now. He has got 3 units of packed red blood cells. 3. Probable upper gastrointestinal bleed. Gastroenterology to follow. He is on a Protonix intravenous drip and have given him some blood, 3 units. 4. Hyperkalemia. Was given some insulin and an albuterol treatment. His hemoglobin is 6.8 and hematocrit 21 this morning. I think we will give him another couple units of blood. Chemistries, creatinine has come down to 3.5, sodium 140, potassium 4.6, chloride 105, BUN 85. cc: MD Roderick Cid MD
[2017-06-21] MEDS: PROTONIX 80 MG in NS 80 ML IV SCH ×2 (10:17→21:32)
[2017-06-21 11:32] LABS: URINE SOURCE CATH
[2017-06-21 11:36] LABS: BILIRUBIN URINE NEGATIVE (NEGATIVE); BLOOD URINE LARGE (NEGATIVE); COLOR STRAW; GLUCOSE URINE 100 mg/dL (NEGATIVE); LEUKOCYTES URINE SMALL (NEGATIVE); NITRITE URINE NEGATIVE (NEGATIVE); PROTEIN URINE 30 mg/dL (NEGATIVE); SP GRAVITY URINE 1.009; TURBIDITY URINE CLEAR (CLEAR); UROBILINOGEN URINE NORMAL (NORMAL)
[2017-06-21 11:37] LABS: URINE MICRO REVIEW NEEDED? YES
[2017-06-21 11:57] LABS: UR EPITHELIAL CELLS <10 /HPF (<10); URINE BACTERIA NEGATIVE /HPF; URINE CULTURE NEEDED? YES; URINE RBC TNTC /HPF (<10); URINE WBC <10 /HPF (<10)
[2017-06-21] MEDS ORDERED: MAXIPIME 1 GM in NS 50 ML IV SCH (14:15)
[2017-06-21] MEDS ORDERED: MAXIPIME 1 GM/D5W 1 GM/50 ML IVPB IV SCH (14:30)
[2017-06-21 15:08] LABS: BASO% 0.6 % (0.0-0.8); EOS# 0.01 X1000 (0.0-0.7); HEMATOCRIT 28.8 % (42.0-52.0); HEMOGLOBIN 9.7 g/dL (14.0-18.0); IMM GRAN# 3.69 X1000 (0.0-0.04); IMM GRAN% 10.6 % (0.0-0.5); LYMPH# 1.18 X1000 (1.2-3.4); LYMPH% 3.4 % (20.5-51.1); MANUAL DIFF NEEDED? YES; MCHC 33.7 g/dL (33-37); MONO# 1.57 X1000 (0.11-0.59); MONO% 4.5 % (1.7-9.3); MPV 10.2 FL (7.4-10.4); NEUT% 80.9 % (42.2-75.2); PLT 141 X1000 (130-400); RBC 3.13 XMIL (4.7-6.1)
[2017-06-21] MEDS: CUBICIN 500 MG in NS 100 ML IV SCH (15:25)
[2017-06-21 15:30] LABS: LYMPHS 14 % (21-51); MONO 2 % (1-9); NRBC 3 % (0-0)
--- NOTE | 2017-06-21 15:57 | PROGRESS NOTE ---
DATE: 06/21/2017 HISTORY OF PRESENT ILLNESS: The patient was being treated at home for pseudomonas bacteremia which was felt to arise from his right leg which he injured in a lawnmower accident. He was on home IV cefepime. He came in the hospital now with generalized weakness and pain in his right leg distal to the knee. MEDICATIONS AT HOME: The patient had been on cefepime. OBJECTIVE: Vital signs: Temperature is 96.5, pulse 98, respirations 23, blood pressure 109/53. General: This is an ill-appearing elderly male who is in no acute distress. Lungs: Clear to auscultation. Cardiovascular: Regular heart rate. Abdomen: Soft and not tender. A colostomy is in place. Extremities: The right leg from the knee distal was swollen and somewhat erythematous, especially in the foot and ankle. Neurologic: The patient is awake. He can move his extremities. There is no tremor. DIAGNOSTIC DATA: The patient's CBC showed a white count of 38,930, hemoglobin 6.8 and platelet count of 173,000. Blood gases showed a pH of 7.25, pO2 of 84 and a pCO2 of 28. Creatinine is 3.5, GFR is 17. Liver function studies are normal. Urinalysis showed no white cells or bacteria. Right foot wound Gram stain showed no organisms. Blood and urine cultures are pending. Previously, the patient's blood grew pseudomonas, and the patient's foot grew oxacillin-sensitive Staphylococcus aureus. ASSESSMENT AND PLAN: It appears to me that the patient still has infection in his right leg, and therefore I plan to obtain a noncontrasted CT scan of the right leg from the knee distal. I agree with putting the patient on Zosyn. I am also going to order daptomycin rather than vancomycin because the patient already has acute renal failure. The patient's comorbidities are that he is very elderly and he injured his right leg in a lawnmower accident. cc: MD Roderick Ramos MD
--- NOTE | 2017-06-21 18:14 | Diag Imaging Result Doc PS360 ---
EXAM: CT EXTREM LOWER (RIGHT) W/O CONTRAST INDICATION: infection TECHNIQUE: Thin section axial images through the right lower leg were obtained usual fashion. Coronal and sagittal reformations were obtained. COMPARISON: None. FINDINGS: There is soft tissue edema around the lower leg, ankle, and foot. No well-defined abscess can be identified. However, note that smaller abscesses may not be appreciable with no IV contrast. There are degenerative changes throughout the foot and ankle. This is causing mild bony irregularity at multiple joints throughout the foot. This irregularity could all be explained by degenerative arthropathy. There is mild irregularity at the lateral aspect of the lateral malleolus that is also probably chronic but nonspecific. A nuclear medicine bone scan or MRI would probably be more helpful to evaluate for osteomyelitis. There are small gas droplets adjacent to the IP joint of the great toe but this may simply represent degenerative vacuum joint phenomenon. Please correlate clinically. There is extensive atherosclerotic calcification throughout the lower leg and foot. IMPRESSION: Soft tissue edema involving the lower leg, ankle, and foot with extensive atherosclerotic calcification and mild multi joint irregularity that can be explained by degenerative arthropathy alone. Consider correlation with nuclear medicine bone scan or MRI to better evaluate for osteomyelitis if there is clinical suspicion. Electronically signed by Stefan Christianson 06/21/2017 6:12 PM
--- NOTE | 2017-06-21 18:26 | CONSULTATION ---
DATE OF CONSULTATION: 06/21/2017 PRIMARY CARE DOCTOR: Dr. Norman. REASON FOR CONSULTATION: GI bleed. HISTORY OF PRESENT ILLNESS: Mr. Dover is an 82-year-old male, who was admitted earlier today on 06/21/2017 with symptoms of weakness, chills, loss of appetite and back pain. He was diagnosed with sepsis secondary to right lower extremity cellulitis on 05/25/2017. He was put on IV antibiotics and sent home for 10 days of antibiotics, but according to the patient's records, his right lower extremity ulcerations got worse and on admission [place] [id number]. He was seen by Dr. Ruiz and he has been started on broad coverage of antibiotics. He was also noted to have low hemoglobin and hematocrit of 4.5 and 14.8. The patient has an ileostomy/colostomy in the right lower quadrant and according to the nursing reports, they were noticing dark stools in the colostomy bag and it tested positive for Hemoccult. So far, the patient has had 4 units blood transfusion and his hematocrit finally went up to 28%. There are no documented reports of nausea, vomiting or blood. According to the records, the patient was on Plavix for peripheral arterial disease. Most history obtained from the patient 's records and charts. The patient was not able to provide much information. PAST MEDICAL HISTORY: 1. Primary hypothyroidism. 2. Degenerative disk disease. 3. Chronic low back pain. 4. Right lower extremity cellulitis. PAST SURGICAL HISTORY: 1. Hernia repair. 2. Partial colectomy with placement of colostomy. The patient could not tell me why he underwent colostomy. ALLERGIES: No known drug allergies. FAMILY HISTORY: Reviewed from the chart. SOCIAL HISTORY: He is a former smoker. No alcohol or illicit drugs. He lives at home with his . MEDICATIONS IN THE HOSPITAL: 1. Daptomycin IV q. 48 hours. 2. Levophed as needed. 3. Synthroid 112 mcg p.o. daily. 4. IV fluids 100 mL/hour. 5. Zofran 4 mg IV every 4 hours. 6. Protonix 40 mg p.o. b.i.d. 7. Prednisone 20 mg once daily. 8. Protonix drip at 10 mL/h. 9. Zoloft 50 mg daily. 10. Trazodone 50 mg once at bedtime. 11. Zosyn 2.25 IV q. 6 hours. 12. The patient is currently on clear liquid diet and will be made NPO past midnight. REVIEW OF SYSTEMS: Could not be obtained as the patient has mild altered mental status. PHYSICAL EXAMINATION: Vital Signs: Temperature 96.6 degrees, pulse 100, respiratory rate 20, blood pressure 116/55, saturating 100% on 2 L nasal cannula. General appearance : Body weight of 161 pounds 14.4 ounces, BMI 22.6 kg. Thinly built lying in bed in no acute distress. HEENT: Pale conjunctivae. No icterus. Pupils equal, reactive to light. Neck: Supple. Chest: Decreased Breath sounds at the bases Cardiovascular: Tachycardic. Abdomen: Mild soreness in epigastric region. There is a colostomy bag in the right lower quadrant draining dark brownish stool liquid in nature. No guarding or rebound. Extremities: No cyanosis or clubbing. There is evidence of cellulitis in the right lower extremity. Neurologic: He opened his eyes to commands and was not able to tell me any information or answer any questions. LABS: Hemoglobin and hematocrit is 9.7, 28.8, white count of 34.76, platelet count of 141,000. Sodium of 140, potassium 4.6, chloride of 105, bicarb 15, anion gap 20, BUN of 85, creatinine 3.5, glucose of 172, calcium is 7.4, magnesium 1.9. Total bilirubin is 0.28, AST 10 , ALT 9, alkaline phos 50, total protein 4, albumin of 2.2, lactate of 7.9. Urinalysis showing positive protein, positive glucose, large blood, small leukocytes. His ABG showing pH of 7.25, pCO2 28, PO2 84, bicarb of 14.3, lactate of 3; this is on 28% FiO2. Blood cultures have been drawn and are currently pending. Stool for occult blood was positive. Urine culture is also pending. He had a lower extremity CT scan done and this is presently pending. IMPRESSION AND PLAN: 1. Sepsis secondary to right lower extremity cellulitis being monitored by the primary care team and Dr. Ruiz. He is on broad-spectrum antibiotics and IV fluids. 2. Anemia on admission requiring 4 units blood transfusion with positive Hemoccult. Suspect upper gastrointestinal bleed. The patient was on Plavix which has been held now. We will check platelet aggregation study. We will keep her on Protonix drip. We will type and cross, and transfuse to keep hematocrit 27%. We will schedule him for EGD tomorrow under anesthesia. The patient is a high risk for any kind of procedures because of multiple medical comorbid conditions including sepsis. We will have to assess in the morning and see if he can endure anesthesia in the morning. 3. Chronic kidney disease which has worsened. He is continuing to get IV fluids. Dr. Mitchell has been consulted. 4. Gastrointestinal prophylaxis with PPIs. 5. We will keep him on clear liquid diet for now. We will continue to watch his stool output. When the family is available, we will need to request records about his prior surgery including colostomy. 6. The above plan was discussed with the patient's nurse. cc: MD Dr. Joseph Jorge MD Timothy P. Weirich, MD [facility] CENTERMiranda
[2017-06-21] MEDS ORDERED: ULTRAM PO ONE (20:27)
[2017-06-21] MEDS ORDERED: TYLENOL PO PRN (20:27)
[2017-06-21] MEDS: DESYREL PO SCH (21:29)
[2017-06-21 22:31] LABS: BASO% 0.3 % (0.0-0.8); EOS# 0.01 X1000 (0.0-0.7); HEMATOCRIT 27.3 % (42.0-52.0); HEMOGLOBIN 9.4 g/dL (14.0-18.0); IMM GRAN# 2.84 X1000 (0.0-0.04); IMM GRAN% 8.1 % (0.0-0.5); LYMPH# 1.39 X1000 (1.2-3.4); MANUAL DIFF NEEDED? YES; MCH 30.9 PG (27-31); MCHC 34.4 g/dL (33-37); MCV 89.8 FL (81-99); MONO# 1.52 X1000 (0.11-0.59); MONO% 4.4 % (1.7-9.3); MPV 9.7 FL (7.4-10.4); NEUT% 83.2 % (42.2-75.2); PLT 132 X1000 (130-400); RBC 3.04 XMIL (4.7-6.1)
[2017-06-21 22:56] LABS: BANDS 12 % (0-1); LYMPHS 4 % (21-51); MONO 4 % (1-9)
[2017-06-22] MEDS: ZOSYN 2.25 GM in NS 50 ML IV SCH ×4 (03:47→20:38)
[2017-06-22 05:55] LABS: BASO% 0.3 % (0.0-0.8); EOS# 0.09 X1000 (0.0-0.7); EOS% 0.3 % (0.0-10.0); HEMOGLOBIN 8.8 g/dL (14.0-18.0); IMM GRAN# 2.56 X1000 (0.0-0.04); IMM GRAN% 8.2 % (0.0-0.5); LYMPH# 1.67 X1000 (1.2-3.4); LYMPH% 5.4 % (20.5-51.1); MANUAL DIFF NEEDED? YES; MCH 30.4 PG (27-31); MCHC 33.8 g/dL (33-37); MONO# 0.92 X1000 (0.11-0.59); NEUT% 82.8 % (42.2-75.2); PLT 127 X1000 (130-400); RBC 2.89 XMIL (4.7-6.1)
[2017-06-22 05:58] LABS: ALBUMIN 2.2 g/dL (3.5-5.0); CALCIUM 7.9 mg/dL (8.8-10.2); POTASSIUM 3.2 mmol/L (3.5-5.1); TOTAL BILIRUBIN 0.34 mg/dL (0.20-1.00); TOTAL PROTEIN 4.4 g/dL (6.3-8.3)
[2017-06-22] MEDS: NS 1,000 ML IV SCH (06:03)
[2017-06-22] MEDS: SYNTHROID PO SCH (06:05)
--- NOTE | 2017-06-22 06:08 | EKG Report ---
Test Performed on : 06/21/2017 05:52:44 AM Test Reason : blood loss Blood Pressure : / mmHG Vent. Rate : 134 BPM Atrial Rate : 131 BPM P-R Int : 128 ms QRS Dur : 090 ms QT Int : 322 ms P-R-T Axes : 033 -55 092 degrees QTc Int : 480 ms Undetermined rhythm Left axis deviation Abnormal QRS-T angle, consider primary T wave abnormality Abnormal ECG When compared with ECG of 21-JUN-2017 00:13, (Unconfirmed) Current undetermined rhythm precludes rhythm comparison, needs review Confirmed by Dominique NAVA, Stanislaw Rodriguez ([id number]) on 06/22/2017 4:59:19 PM
--- NOTE | 2017-06-22 06:33 | EKG Report ---
Test Performed on : 06/21/2017 06:56:29 AM Test Reason : reordered/blood loss Blood Pressure : / mmHG Vent. Rate : 110 BPM Atrial Rate : 110 BPM P-R Int : 118 ms QRS Dur : 090 ms QT Int : 350 ms P-R-T Axes : 065 -49 078 degrees QTc Int : 473 ms Sinus tachycardia. Low voltage QRS Left anterior fascicular block Abnormal ECG When compared with ECG of 21-JUN-2017 05:52, (Unconfirmed) Previous ECG has undetermined rhythm, needs review Confirmed by Dominique NAVA, Stanislaw Rodriguez ([id number]) on 06/22/2017 4:59:50 PM
--- NOTE | 2017-06-22 06:33 | EKG Report ---
Test Performed on : 06/21/2017 04:56:17 AM Test Reason : No Order in [employer] Blood Pressure : / mmHG Vent. Rate : 117 BPM Atrial Rate : 117 BPM P-R Int : 132 ms QRS Dur : 088 ms QT Int : 368 ms P-R-T Axes : 066 -58 091 degrees QTc Int : 513 ms Sinus tachycardia. with premature atrial complexes. Left axis deviation Abnormal QRS-T angle, consider primary T wave abnormality Abnormal ECG No previous ECGs available Confirmed by Dominique NAVA, Stanislaw Rodriguez ([id number]) on 06/22/2017 4:58:57 PM
[2017-06-22 07:00] LABS: BANDS 6 % (0-1); LYMPHS 2 % (21-51); MONO 4 % (1-9); NRBC 1 % (0-0)
[2017-06-22 07:34] LABS: BASO% 0.3 % (0.0-0.8); EOS# 0.11 X1000 (0.0-0.7); EOS% 0.4 % (0.0-10.0); HEMATOCRIT 25.6 % (42.0-52.0); HEMOGLOBIN 8.6 g/dL (14.0-18.0); IMM GRAN% 8.6 % (0.0-0.5); LYMPH# 1.69 X1000 (1.2-3.4); LYMPH% 5.8 % (20.5-51.1); MANUAL DIFF NEEDED? YES; MCH 30.4 PG (27-31); MCHC 33.6 g/dL (33-37); MCV 90.5 FL (81-99); MONO# 0.97 X1000 (0.11-0.59); MONO% 3.3 % (1.7-9.3); MPV 10.1 FL (7.4-10.4); NEUT% 81.6 % (42.2-75.2); PLT 119 X1000 (130-400); RBC 2.83 XMIL (4.7-6.1)
[2017-06-22] MEDS ORDERED: SODIUM CHLORIDE 0.9% 20 ML ONE (07:37)
[2017-06-22] MEDS ORDERED: NEO-SYNEPHRINE ONE (07:37)
[2017-06-22] MEDS ORDERED: XYLOCAINE-MPF 2% ONE (07:37)
[2017-06-22] MEDS ORDERED: ROBINUL ONE (07:37)
[2017-06-22] MEDS ORDERED: ZOFRAN ONE (07:37)
[2017-06-22] MEDS ORDERED: DIPRIVAN 1% ONE (07:40)
[2017-06-22 07:49] LABS: BANDS 12 % (0-1); LYMPHS 2 % (21-51)
[2017-06-22] MEDS: PROTONIX 80 MG in NS 80 ML IV SCH ×2 (08:06→17:30)
--- NOTE | 2017-06-22 08:24 | PROGRESS NOTE ---
DATE: 06/22/2017 SUBJECTIVE: The patient has no complaints other than being in the hospital. I discussed with him his departure last time which I think was expedited by his emotional distress. It shows that he had continued to bleed and is in need of intervention at this point. Today he has no new complaints. OBJECTIVE: Vital Signs: Temperature 97.3, pulse 85, respirations 12. Blood pressure 110/60 at the time of my examination. Neuropsychological: The patient is alert, oriented and complaining. He seems to have all of his faculties. Cardiovascular: Regular with occasional ectopy as viewed on the telemetry screen. Lungs: Clear. Extremities: The patient continues to have the ulcerations over the tops of his toes but the remainder of his exam in the lower extremity is markedly improved from his previous examination. The other areas have healed quite well and the coloration of the feet and toes seems to be appropriate. ASSESSMENT AND PLAN: 1. The most pressing issue is to identify the source of his GI bleeding and make appropriate intervention. He is on appropriate medication at the present time and we are monitoring his blood count. 2. Patient's Gram stain from the wound on his right foot from 06/21/2017 has shown a gram- negative joão and will likely grow Pseudomonas as previously. He is on adequate coverage for this. Dr. Ruiz is following. 3. The patient's mood and psychiatric issues are being addressed and his usual medications. 4. The patient's peripheral vascular disease he will be addressed with pentoxifylline reinstitution after his GI procedure is complete today. We will not be able to put Plavix or aspirin back into the regimen for some time. This will be necessary over the detention. 5. It is likely that the patient can be transferred to CICU following his GI procedure today, assuming that he goes to that without any major problems. cc: Roderick Norman MD
[2017-06-22] MEDS ORDERED: LABETALOL ONE (09:16)
[2017-06-22] MEDS: PREDNISONE PO SCH (09:44)
[2017-06-22] MEDS: ZOLOFT PO SCH (09:44)
--- NOTE | 2017-06-22 10:31 | OPERATIVE NOTE ---
PROCEDURE DATE: 06/22/2017 PRIMARY CARE DOCTOR: Roderick Norman MD PROCEDURE: Esophagogastroduodenoscopy. PREOPERATIVE DIAGNOSES: 1. Melena. 2. Severe anemia, requiring blood transfusion. 3. Sepsis. 4. Cellulitis secondary sepsis and questionable pneumonia. POSTOPERATIVE DIAGNOSES: 1. Normal esophagus entire length to Z-line at 40 cm. 2. Evidence of sliding hiatal hernia, 1-2 cm. 3. Evidence of erosive gastritis, mild degree in the gastric antrum. 4. Normal fundus, cardia, and antrum. 5. Mild duodenitis in bulb. 6. Normal 2nd and 3rd portion of duodenum. ESTIMATED BLOOD LOSS: None. COMPLICATIONS: None. ANESTHESIA: Monitored anesthesia care. SPECIMEN: None. PROCEDURE: After informed consent obtained from the patient and family, explained the risks, benefits, indications, alternatives to the procedure for esophagogastroduodenoscopy. Patient brought to the OR. He was turned the left lateral position. A bite block was placed in patient's mouth. After adequate monitored anesthesia care, the upper scope was introduced and advanced towards the esophagus into the second portion of the duodenum. The esophagus was normal in entire length. There was no evidence of any ulcerations or bleeding stigmata. There was no evidence of any varices. Z- line visualized at 40 cm. There is evidence of 1-2 cm sliding hiatal hernia. There was no evidence of any ulcerations in the hiatal sac. The stomach showed evidence of mild erythema and erosions in the gastric antrum. There was no evidence of active bleeding. No evidence of any ulceration. Normal fundus, cardia, incisura. Evidence of mild erythema in the duodenal bulb. No evidence of any ulcerations. Normal 2nd and 3rd portion of duodenum. The scope was withdrawn into the stomach. Again, the area was carefully examined. No evidence of any fresh or old blood was not noted in the entire esophagogastroduodenoscopy. The air was suctioned out and the scope was withdrawn. The patient tolerated the procedure well and was monitored in OR in stable condition. I discussed the findings with the patient's family and all questions were answered. RECOMMENDATIONS: The patient will be on a clear liquid diet today. Will give him GoLYTELY 1 gallon to start at 12 noon. We will make him n.p.o. past midnight. We will schedule for a colonoscopy from the colostomy bag, as well as from the rectum, to evaluate for the source of severe anemia. He has never had a colonoscopy done before. He had a colectomy , partial colectomy, and colostomy done for colonic perforation, which was attributed to constipation per the patient's . We do not have the official records in the chart. We will try to obtain those. We will keep a close eye on patient's hemoglobin and hematocrit and transfuse as needed. Patient will continue antibiotics, per the primary care team. The above plan was discussed with the patient's family and all questions answered. cc: MD Roderick Calzada MD MTDD
[2017-06-22] MEDS ORDERED: GOLYTELY PO ONE (12:00)
[2017-06-22 13:07] LABS: UR CREAT RANDOM 23.4 mg/dL (14-26); UR PROT RANDOM 21.9 mg/dL
--- NOTE | 2017-06-22 15:06 | CONSULTATION ---
DATE OF CONSULTATION: 06/22/2017 REASON FOR ADMISSION: Weakness with fall. REASON FOR CONSULTATION: Acute kidney injury on CKD stage 4. CONSULTING PHYSICIAN: Michael Holloway NP, for Dr. Norman. HISTORY OF PRESENT ILLNESS: Mr. Dover is an 82-year-old, pleasant, white male who was brought to the emergency room on June 21 by the family per EMS. The patient states that he was weak. He was attempting to sit down. He has sores on his right foot. He stated that he missed the chair and had fallen to the floor. He was unable to get up. He does currently complain of back pain. States that he has not had any fever or chills. His right leg is chronically in pain. He states that he has had a cough in the last few days, though nonproductive. No nausea, vomiting. No diarrhea. No chest pain. The patient was recently admitted, on May 25, with sepsis secondary to right lower extremity cellulitis. This was treated with IV antibiotics, and was sent home with 10-day antibiotics, according to his chart. The patient states that he remembers taking the antibiotics for his legs, but does not remember them getting any better. Subsequently, he states that he cannot see well. He also states that he is hard of hearing. In the emergency room, it was found that his right lower extremity ulcerations on his right ankle were necrotic- appearing lesions, on his first and second toes, with dry necrosis, possible eschar. His chest x- ray in the emergency room was negative. His white count was found to be 49.87, with a hemoglobin of 4.5, creatinine of 4. His plasma lactate was 7.9. The patient was subsequently admitted to ICU. He was started on vancomycin and Zosyn. He currently has normal saline infusing at 100 mL an hour. His pressures remain stable. PAST MEDICAL HISTORY: Primary hypothyroidism, degenerative disk disease, chronic low back pain, right lower extremity cellulitis, previous baseline creatinine of 2.4 during this last hospitalization. Appears to be his baseline prior to that, with a CKD stage 4 noted. PREVIOUS SURGICAL HISTORY: Inguinal hernia, partial colectomy, with a placement of colostomy. FAMILY HISTORY: Noncontributory. SOCIAL HISTORY: He lives with his spouse at home. Former smoker. No alcohol. No illicit drugs. CURRENT ALLERGIES: No known drug allergies. MEDICATIONS: Prednisone, Neurontin, Synthroid, Plavix, Trental, trazodone, Zoloft and Supercircuits. REVIEW OF SYSTEMS: As best obtained from chart and per patient, pertinent positives listed above in the HPI. VITAL SIGNS: His most recent vital signs, temperature 97.3 degrees, blood pressure 113/56, heart rate 100 respirations are 18. Patient currently remains on room air. Last recorded saturation 96%. He has had 4080 in and 2735 out per Whatley catheter. He is 2.8 L positive. LABORATORY DATA: Sodium 142, potassium 3.2, chloride 112, CO2 16, BUN 67, creatinine 2.9, glucose 94. His anion gap is 14, calcium 7.9, albumin 2.2. White count 31.18, hemoglobin 8.8, hematocrit 26, platelet count 127,000. PTT of 89. Urinalysis is positive for blood and proteinuria and leukocytes. Occult blood was positive. The patient received 4 units of packed red blood cells during this hospitalization. He states he is scheduled for a scope sometime this week. PHYSICAL EXAMINATION: General: This is an 82-year-old, white male. He is very pleasant. He remains in no acute distress. Skin: Warm and dry. HEENT: Normocephalic, atraumatic. Conjunctiva is pale. He has JED. Mucous membranes are dry. Neck: Supple. Trachea midline. He does have positive JVD. Lungs: Clear to auscultation anterior, with diminished breath sounds posterior bases. He remains on room air. Abdomen: Colostomy is in place. Dark-green bile noted to anterior bag. Hypo bowel sounds. Genitourinary: Whatley catheter is in place. Adequate urine out. Extremities: He continues to have darkened area to right lower extremity. Necrotic ulceration to the right first and second toes. Ulceration to the right medial ankle. Right lower extremity is warm to touch with 3+ edema, lower extremity on the left with 2+ edema. Warm to touch. Integumentary: Warm and dry. Lesions noted, as above. Neurological: Alert and oriented to person and to place. Again, the patient is hard of hearing and states his eyesight is very poor. ASSESSMENT AND PLAN: 1. Acute kidney injury. It appears the patient's baseline creatinine is 2 to 2.2 over the last year. It has slowly responded to IV fluids. Secondary to his positive JVD, we will stop these IV fluids at this time. Check labs in the a.m. and reevaluate. He continues on renal dosed antibiotics of Cubicin and Zosyn. 2. Electrolytes. The patient has mild hypokalemia. This will probably improve stopping his normal saline. We will give him 1 small dose of potassium, if not already done. 3. Acidosis. The patient remains metabolic acidosis. This may be secondary to his GI bleed. This is at 16. We will monitor. 4. Anemia. The patient has received 4 units of packed red blood cells. Hemoglobin is at 8.8, with possible scope done during this hospitalization. 5. Septic shock. The patient continues on no pressor support at this time. White count has improved. He remains in ICU for close observation. I would to thank you for allowing us to follow with this patient. Dictated by CHITO Rizo for Leonardo Mitchell MD Patient seen, data reviewed, discussed with Lance Taylor on 06/22/17. I agree with the above assessment and plan of care. cc: CHITO Rizo MD Timothy P. Weirich, MD [facility]ENTERMiranda
[2017-06-22 15:08] LABS: BASO% 0.5 % (0.0-0.8); EOS# 0.09 X1000 (0.0-0.7); EOS% 0.3 % (0.0-10.0); HEMATOCRIT 28.8 % (42.0-52.0); HEMOGLOBIN 9.7 g/dL (14.0-18.0); IMM GRAN# 2.71 X1000 (0.0-0.04); IMM GRAN% 8.8 % (0.0-0.5); LYMPH# 1.35 X1000 (1.2-3.4); LYMPH% 4.4 % (20.5-51.1); MANUAL DIFF NEEDED? NO; MCH 30.6 PG (27-31); MCHC 33.7 g/dL (33-37); MCV 90.9 FL (81-99); MONO# 0.91 X1000 (0.11-0.59); MONO% 2.9 % (1.7-9.3); MPV 9.8 FL (7.4-10.4); NEUT% 83.1 % (42.2-75.2); PLT 127 X1000 (130-400); RBC 3.17 XMIL (4.7-6.1)
--- NOTE | 2017-06-22 16:26 | PROGRESS NOTE ---
DATE: 06/22/2017 HISTORY OF PRESENT ILLNESS: Mr. Dover has had a previous lawnmower accident and was treated at home without success and came in to the hospital with general weakness to the right lower extremity. MEDICATIONS: Mr. Dover is currently on daptomycin 500 mg every 48 hours as well as Zosyn 2.25 g every 6 hours per renal dosing. He is also on prednisone 20 mg p.o. daily. DIAGNOSTIC DATA: His CBC shows a white count of 30.95, hemoglobin 9.7, platelet count 127,000. His creatinine is down a little bit to 2.9 today with a GFR of 21. His right foot Gram stain shows gram-negative rods. Urine culture shows no growth. Blood culture results are pending. CT of his right leg shows extensive atherosclerotic calcification and mild multijoint irregularity. OBJECTIVE: Vital signs: Temperature is 96.8, heart rate 90, respiratory rate 21, blood pressure 115/55. COMORBIDITIES: Hypothyroidism, degenerative disk disease, chronic kidney disease stage 4, chronic back pain and previous right lower extremity cellulitis. ASSESSMENT AND PLAN: Mr. Dover's white count is staying up. We will continue daptomycin and Zosyn as ordered. Today a triple phase bone scan has been ordered to rule out osteomyelitis, and we will follow up with that. This represents Dr. Ruiz' evaluation and treatment of the patient. Dictated by CHITO Hoff for Scooter Ruiz MD cc: CHITO Hoff MD Timothy P. Weirich, MD
--- NOTE | 2017-06-22 17:16 | PROGRESS NOTE ---
DATE: 06/22/2017 PRESENT ILLNESS: The patient was readmitted to the hospital because of infection in his right leg. He previously had a headlight adjuster accident with that leg. The culture from the leg grew a Staph aureus, and the patient had a Pseudomonas bacteremia which, I feel, arose from the leg, even though it did not grow from the wound. HOME MEDICATIONS: At home, he was not on any antibiotics, but he is on long-term prednisone. PHYSICAL EXAMINATION: Vital Signs: Temperature is 96.8 degrees, pulse 90, respirations 21, blood pressure 115/55. General: This is a somewhat ill-appearing, elderly male. He is in no acute distress. Lungs: Clear to auscultation. Cardiovascular: Heart rate is regular. Abdomen: Soft and nontender. The patient has a colostomy in place. Extremities: The right leg is less erythematous and swollen than it was yesterday. Neurologic: The patient is alert today. He can move his extremities. LABORATORY AND X-RAY: The patient's Gram stain from the right foot showed gram-negative rods. Urine culture shows no growth. Blood culture results are pending. CT scan of the right leg shows atherosclerotic calcification and multi-joint irregularities. ASSESSMENT AND PLAN: The patient has a leg infection. We have ordered today a triple-phase bone scan of the leg. For now, I am going to continue his current antibiotics which consist of daptomycin and Zosyn. This is day 1 of treatment. COMORBIDITIES: He is very elderly. He has degenerative joint disease, has previously had a cellulitis in his right leg and, unfortunately, he had an accident with the headlight adjuster, injuring his leg at this time. The patient's medications are daptomycin, and medications in the hospital include daptomycin and Zosyn. cc: MD Roderick Ramos MD
[2017-06-22] MEDS: DESYREL PO SCH (20:38)
[2017-06-22 22:06] LABS: BASO% 0.4 % (0.0-0.8); EOS# 0.03 X1000 (0.0-0.7); EOS% 0.1 % (0.0-10.0); HEMATOCRIT 28.4 % (42.0-52.0); HEMOGLOBIN 9.5 g/dL (14.0-18.0); IMM GRAN# 2.54 X1000 (0.0-0.04); IMM GRAN% 8.6 % (0.0-0.5); LYMPH# 1.41 X1000 (1.2-3.4); LYMPH% 4.8 % (20.5-51.1); MANUAL DIFF NEEDED? YES; MCH 30.5 PG (27-31); MCHC 33.5 g/dL (33-37); MCV 91.3 FL (81-99); MONO# 0.93 X1000 (0.11-0.59); MONO% 3.1 % (1.7-9.3); PLT 130 X1000 (130-400); RBC 3.11 XMIL (4.7-6.1)
[2017-06-22 22:21] LABS: BANDS 1 % (0-1); LYMPHS 5 % (21-51); NRBC 2 % (0-0)
[2017-06-22 22:22] LABS: POLYCHROM 1+
[2017-06-23] MEDS: PROTONIX 80 MG in NS 80 ML IV SCH ×2 (03:54→14:25)
[2017-06-23] MEDS: ZOSYN 2.25 GM in NS 50 ML IV SCH ×4 (03:54→22:42)
[2017-06-23 05:52] LABS: BASO% 0.4 % (0.0-0.8); EOS% 0.4 % (0.0-10.0); HEMATOCRIT 28.4 % (42.0-52.0); HEMOGLOBIN 9.4 g/dL (14.0-18.0); IMM GRAN% 9.4 % (0.0-0.5); LYMPH# 1.55 X1000 (1.2-3.4); LYMPH% 6.3 % (20.5-51.1); MANUAL DIFF NEEDED? YES; MCH 30.3 PG (27-31); MCHC 33.1 g/dL (33-37); MCV 91.6 FL (81-99); MONO# 0.85 X1000 (0.11-0.59); MONO% 3.5 % (1.7-9.3); MPV 10.4 FL (7.4-10.4); PLT 125 X1000 (130-400)
[2017-06-23 05:54] LABS: ALBUMIN 2.5 g/dL (3.5-5.0); CALCIUM 7.9 mg/dL (8.8-10.2); POTASSIUM 3.2 mmol/L (3.5-5.1)
[2017-06-23 06:10] LABS: LARGE PLATELETS OCCASIONAL; LYMPHS 7 % (21-51); NRBC 1 % (0-0)
[2017-06-23] MEDS: SYNTHROID PO SCH ×2 (07:05→14:25)
[2017-06-23 07:27] LABS: RETIC% 3.62 % (0.8-2.1); RETIC-HE 34.2 PG (28.2-36.6)
[2017-06-23] MEDS: PREDNISONE PO SCH ×2 (08:38→14:25)
[2017-06-23] MEDS: NS 1,000 ML IV SCH ×2 (09:17→17:46)
[2017-06-23] MEDS: ZOLOFT PO SCH ×2 (09:29→14:26)
[2017-06-23 10:08] LABS: BASO% 0.5 % (0.0-0.8); EOS# 0.26 X1000 (0.0-0.7); EOS% 1.2 % (0.0-10.0); HEMATOCRIT 27.5 % (42.0-52.0); HEMOGLOBIN 9.1 g/dL (14.0-18.0); IMM GRAN# 2.05 X1000 (0.0-0.04); IMM GRAN% 9.6 % (0.0-0.5); LYMPH# 1.56 X1000 (1.2-3.4); LYMPH% 7.3 % (20.5-51.1); MANUAL DIFF NEEDED? NO; MCH 30.4 PG (27-31); MCHC 33.1 g/dL (33-37); MONO# 0.66 X1000 (0.11-0.59); MONO% 3.1 % (1.7-9.3); MPV 10.3 FL (7.4-10.4); NEUT% 78.3 % (42.2-75.2); PLT 109 X1000 (130-400); RBC 2.99 XMIL (4.7-6.1)
--- NOTE | 2017-06-23 11:39 | Diag Imaging Result Doc PS360 ---
EXAM: 3 PHASE BONE SCAN HISTORY: osteomyelitis of feet TECHNIQUE: 26.9 mCi technetium MDP administered COMPARISON: CT from 06/21/2017 FINDINGS: There is increased activity in the right ankle and foot on the immediate blood flow images. This persists on the blood pool images at five, 10, and 15 minutes. Three-hour delayed images show increased activity within the midfoot, ankle, and toes. IMPRESSION: The widespread distribution would be very unusual for osteomyelitis. Findings likely due to cellulitis and arthropathy. Electronically signed by Brando Oscar 06/23/2017 11:36 AM
[2017-06-23] MEDS ORDERED: DIPRIVAN 1% ONE (12:57)
[2017-06-23] MEDS ORDERED: XYLOCAINE-MPF 2% ONE (12:58)
[2017-06-23] MEDS ORDERED: ROBINUL ONE (13:49)
--- NOTE | 2017-06-23 13:53 | PROGRESS NOTE ---
DATE: 06/23/2017 TIME SEEN: 0755 SUBJECTIVE: Mr. Dover is resting quietly in bed. He denies any pain at this time. States his chest is still hurting from having his fall prior to his admission. He denies chest pain or increased work of breathing. OBJECTIVE: His most recent vital signs, temperature 97.7 degrees, blood pressure 128/65, heart rate 78, respirations 18. He is on room air. Last recorded saturation 100%. He has had 1755 in, 2600 out. He is in a -845 mL fluid balance as of today. IV fluids remain off. LABS: Sodium 145, potassium 3.2, chloride 111, CO2 17, BUN 56, creatinine 2.8, glucose 94, anion gap 17, calcium 7.9, phosphorus 4.8, albumin 2.5, white count 24.75, hemoglobin 9.4, hematocrit 28.4, platelet count 125,000. Patient has wound culture growing gram-negative rods. Sensitivity still pending. Blood cultures are negative after 48 hours. PHYSICAL EXAMINATION: General: This is an 82-year-old white male. He is currently resting in bed. He is in no acute distress. Skin: Warm and dry. HEENT: Normocephalic, atraumatic. Conjunctiva is pale. He has JED. Mucous membranes are dry. Neck: Supple. Trachea midline. Trace JVD. Cardiovascular: He is regular rate and rhythm. No murmur or gallop appreciated. Lungs: Clear to auscultation anteriorly. Diminished breath sounds posterior bases. Abdomen: Round, soft, nontender. Positive bowel sounds. Colostomy in place. Dark green bile noted interior bag. Hypo bowel sounds. Genitourinary: Whatley catheter is in place. Adequate urine out. Extremities: Have ulceration to the right medial ankle and right lower extremity 3+, left is 2+. He has darkened eschar noted to toes on the right. Neurological: Alert and oriented to person and place. ASSESSMENT AND PLAN: 1. Acute kidney injury. Patient's baseline creatinine is 2-2.2. His creatinine is now down to 2.8. We will continue to monitor. BUN is stable. 2. Electrolytes. Patient has mild hypokalemia. We will defer to the primary care team for treatment. 3. Acid-base balance. Patient remains acidotic. Secondary to patient's swelling we will not add any sodium bicarbonate. We will continue to monitor. 4. Anemia. This remains stable. 5. Septic shock. Patient continues with no pressor support. Blood pressure looks good. White count is improving. He continues to be followed and monitored closely in ICU. Like to thank you for allowing us to follow with this patient. Dictated by CHITO Rizo for Leonardo Mitchell MD Patient seen, data reviewed, discussed with Lance Taylor on 06/23/17. I agree with the above assessment and plan of care. cc: CHITO Rizo MD Timothy P. Weirich, MD [facility]
[2017-06-23] MEDS: CUBICIN 500 MG in NS 100 ML IV SCH (14:30)
[2017-06-23 15:21] LABS: BASO% 0.6 % (0.0-0.8); EOS# 0.36 X1000 (0.0-0.7); EOS% 1.8 % (0.0-10.0); HEMOGLOBIN 9.6 g/dL (14.0-18.0); IMM GRAN# 2.08 X1000 (0.0-0.04); IMM GRAN% 10.5 % (0.0-0.5); LYMPH# 1.55 X1000 (1.2-3.4); LYMPH% 7.8 % (20.5-51.1); MANUAL DIFF NEEDED? YES; MCH 30.5 PG (27-31); MCHC 33.1 g/dL (33-37); MCV 92.1 FL (81-99); MONO# 0.61 X1000 (0.11-0.59); MONO% 3.1 % (1.7-9.3); MPV 9.9 FL (7.4-10.4); NEUT% 76.2 % (42.2-75.2); PLT 110 X1000 (130-400); RBC 3.15 XMIL (4.7-6.1)
[2017-06-23] MEDS ORDERED: LASIX IV ONE (15:46)
--- NOTE | 2017-06-23 16:04 | PROGRESS NOTE ---
DATE: 06/23/2017 SUBJECTIVE: The patient states that he is hurting all over and he is sick of being stuck by needles. The patient's nurse noted that his arms have been swelling, particularly in the dependent areas. OBJECTIVE: Vital Signs: Temperature 97.2, pulse 73, respiratory rate 16, blood pressure 126/73, 100% saturated on room air. General: Patient has edema in both arms, particularly in his dependent areas. It does appear that his IVs are functioning. Lungs: Clear. Cardiovascular: Regular. LABORATORIES: White cell count was 19.89, hemoglobin was 9.6, reticulocyte count 3.62, (elevated). Potassium was 3.2, BUN 56, creatinine reduced to 2.8. TSH was 0.05 (low). Free T4 0.87 (low). ASSESSMENT AND PLAN: 1. The patient had no source of GI bleeding on the upper endoscopy yesterday. He is scheduled for colonoscopy some time this afternoon. 2. Gram stain from the wound and the culture has grown Pseudomonas as well as a Gram positive cocci. Dr. Scooter Ruiz is following. 3. The patient had a bone scan today to see if there was any bony involvement of his lesions on his legs. The bone scan as read by Dr. Ruiz was most consistent with cellulitis and arthropathy and did not appear to have bony involvement and would be very unusual for osteomyelitis. We will need to reinstitute the patient's pain medications. He is getting somewhat uncomfortable at this point. 1. The patient's renal insufficiency is improving. I plan to add some IV fluids. He may also need some Lasix to take off some of the capillary leak that is taking place. We will continue to monitor this on a daily basis. Dr. Mitchell is following. 2. Assuming the patient's blood pressure is stable, he can be transferred from the ICU into the [facility] after his GI procedure. cc: Roderick Norman MD
[2017-06-23 16:16] LABS: BANDS 3 % (0-1); EOS 1 % (1-10); LYMPHS 4 % (21-51); MONO 3 % (1-9)
[2017-06-23] MEDS: HYDROCODONE/APAP 7.5-325/15 ML PO SCH (17:47)
--- NOTE | 2017-06-23 18:33 | PROGRESS NOTE ---
DATE: 06/23/2017 HPI: Mr. Dover is about to transfer up to the 3rd floor after a stint in the ICU due to infection to his right leg from a previous lawnmower accident. Culture has grown Pseudomonas and we are continuing to treat it. MEDICATIONS: He is currently on day 2 of daptomycin and Zosyn per renal dosing. PHYSICAL EXAM: Vital Signs: Temperature 97.3 degrees, heart rate 68, respiratory rate 16, blood pressure 128/66. General: This is an ill appearing elderly male in no acute distress. He is awake, alert and oriented to person, place, and time. HEENT: Pupils equal, round, reactive to light. Lungs: Respirations even and nonlabored. He is on room air with O2 saturation of 97%. Heart: Rate is regular in the 70s. His pulses are normal bilateral radial, weaker to his pedal pulses bilaterally. Edema is noted to all extremities which is worse to the right lower extremity and upper extremity. Abdomen: Soft and slightly tender with colostomy in place. Skin: Color is pink, warm, and dry. He has bruising and edema, some redness noted to his left upper extremity. Legs are less erythematous but eschar remains to right 1st and 2nd toe. IV sites to left and right arm without redness, edema or drainage both are peripheral. LAB AND X-RAY: White count is 19.89, hemoglobin 9.6, platelet count 110,000, creatinine 2.8, GFR 22. His bone scan today showed no osteomyelitis, likely cellulitis versus arthropathy. Urine culture showed no growth. Right foot culture noted to have Pseudomonas as well as gram-positive cocci. ASSESSMENT AND PLAN: Mr. Dover's white count continues to go down. We are going to continue his current antibiotics of daptomycin and Zosyn renal doses, this is day 2 of treatment. COMORBIDITIES: Mr. Dover is elderly. He has a history of degenerative disk disease with a previous cellulitis to his right lower extremity after an injury. Discussed plan of care with Dr. Ruiz. Dictated by CHITO Hoff for Scooter Ruiz MD cc: CHITO Hoff MD Timothy P. Weirich, MD
--- NOTE | 2017-06-23 19:02 | PROGRESS NOTE ---
DATE: 06/23/2017 Based on my nurse practitioner's collection of data and based on my physical examination I formed a treatment program for the patient. Our plan is to continue his current antibiotics. Treatment regimen that I formulated is outlined in the dictation done by my nurse practitioner. cc: MD Roderick Ramos MD
[2017-06-23 21:29] LABS: BASO% 0.3 % (0.0-0.8); EOS# 0.06 X1000 (0.0-0.7); EOS% 0.4 % (0.0-10.0); HEMATOCRIT 28.7 % (42.0-52.0); HEMOGLOBIN 9.6 g/dL (14.0-18.0); IMM GRAN# 1.44 X1000 (0.0-0.04); LYMPH# 0.76 X1000 (1.2-3.4); LYMPH% 4.8 % (20.5-51.1); MANUAL DIFF NEEDED? NO; MCH 30.6 PG (27-31); MCHC 33.4 g/dL (33-37); MCV 91.4 FL (81-99); MONO# 0.42 X1000 (0.11-0.59); MONO% 2.6 % (1.7-9.3); MPV 10.5 FL (7.4-10.4); NEUT% 82.9 % (42.2-75.2); PLT 107 X1000 (130-400); RBC 3.14 XMIL (4.7-6.1)
[2017-06-23] MEDS: DESYREL PO SCH (22:42)
[2017-06-24] MEDS: PROTONIX 80 MG in NS 80 ML IV SCH ×3 (00:21→09:39)
[2017-06-24] MEDS: NS 1,000 ML IV SCH (03:11)
[2017-06-24] MEDS: ZOSYN 2.25 GM in NS 50 ML IV SCH ×3 (03:11→15:36)
[2017-06-24 03:41] LABS: BASO% 0.3 % (0.0-0.8); EOS# 0.03 X1000 (0.0-0.7); EOS% 0.2 % (0.0-10.0); HEMATOCRIT 27.7 % (42.0-52.0); HEMOGLOBIN 9.1 g/dL (14.0-18.0); IMM GRAN# 1.12 X1000 (0.0-0.04); IMM GRAN% 8.2 % (0.0-0.5); LYMPH# 0.99 X1000 (1.2-3.4); LYMPH% 7.3 % (20.5-51.1); MANUAL DIFF NEEDED? YES; MCHC 32.9 g/dL (33-37); MCV 91.4 FL (81-99); MONO# 0.51 X1000 (0.11-0.59); MONO% 3.8 % (1.7-9.3); MPV 9.9 FL (7.4-10.4); NEUT% 80.2 % (42.2-75.2); PLT 97 X1000 (130-400); RBC 3.03 XMIL (4.7-6.1)
[2017-06-24 03:57] LABS: ALBUMIN 2.4 g/dL (3.5-5.0); CALCIUM 7.5 mg/dL (8.8-10.2); POTASSIUM 3.1 mmol/L (3.5-5.1)
[2017-06-24 04:27] LABS: LYMPHS 3 % (21-51); NRBC 2 % (0-0)
[2017-06-24] MEDS ORDERED: VANCOMYCIN 1,350 MG in NS 250 ML IV SCH (05:00)
[2017-06-24] MEDS: SYNTHROID PO SCH (06:27)
[2017-06-24] MEDS: ZOLOFT PO SCH (09:06)
[2017-06-24] MEDS: SODIUM CHLORIDE 0.9% 10 ML ONE ×2 (09:08→21:43)
[2017-06-24] MEDS: PROTONIX IV SCH ×2 (09:10→21:43)
--- NOTE | 2017-06-24 09:20 | PROGRESS NOTE ---
DATE: 06/24/2017 SUBJECTIVE: The patient has no complaints. He is actually in fairly good mood today. He states that he does want to eat some food. He states he is tired of having blood draws performed. As an aside he had blood drawn this morning and then someone was coming in at 9 o'clock to draw blood again and I canceled that. There appears to be quite a bit of duplication in some of his orders, so I am going to cancel all those and then start over again tomorrow. OBJECTIVE: Vital Signs: Temperature 98.5, pulse 62, respirations, 20 blood pressure 126/64, 96% saturated on room air. Lungs: Clear to auscultation. Cardiovascular: Regular, 70 at the time of my examination. Extremities: Showed eschar on his right toes on the top portion of those, which are unchanged from previously. There is a small abrasion/skin wound on the right medial malleolus. This has not changed either. He has good capillary refill. LABORATORY: White blood cells are 13.6, hemoglobin is 9.1, hematocrit 27.7. Platelet count 97,000. Chemistries show a potassium of 3.1. Creatinine is down to 2.6. Albumin is 2.4. ASSESSMENT AND PLAN: 1. Both upper endoscopy and colonoscopy have shown no sites of active bleeding. We can likely change his medications to p.o. format. 2. The patient's wound culture results show Pseudomonas, as well as 2 other staph species. There is some resistance pattern in the Staph epidermis. Dr. Ruiz is managing antibiotic choices and will design something for outpatient treatment as well. 3. Bone scan was negative for bony involvement. 4. Pain medications have been reinstituted with appropriate affect. 5. Renal insufficiency shows creatinine down to 2.6. IV fluids have been discontinued. He still has some edema about the arms, but other than that seems to be doing well. He still has a Whatley catheter in. 6. Blood pressure stable. I think some of his hypotension is driven not only by fluid loss, as well as anemia, but also by adrenal suppression from long-term steroid use. This seems to have stabilized at the present time. 7. Overall expect several more days in the hospital to build strength and make sure he is tolerating diet, as well as documenting the stability of his red cell count. cc: Roderick Norman MD
[2017-06-24] MEDS: HYDROCODONE/APAP 7.5-325/15 ML PO SCH ×3 (09:30→17:17)
[2017-06-24] MEDS: PREDNISONE PO SCH (09:30)
[2017-06-24] MEDS: TRENTAL PO SCH ×3 (09:30→17:18)
--- NOTE | 2017-06-24 15:22 | PROGRESS NOTE ---
DATE: 06/24/2017 SUBJECTIVE: Patient is resting in bed. His is at the bedside. He denies any new complaints. He is feeling better. He denies any fevers, rigors, chills. Denies any nausea, vomiting or vomiting blood. He denies any blood in the stools. OBJECTIVE: Vital Signs: Temperature 98.5, pulse of 64, respiratory rate 17, blood pressure 109/56, saturating 96% on room air. General Appearance: Patient is lying in bed, in no acute distress. HEENT: Pale conjunctivae, no icterus. Neck: Supple. Abdomen: Colostomy bag in the right lower quadrant draining brown stool. No guarding. No rebound. Extremities: No cyanosis, clubbing. He has cellulitis in the lower extremities. Neurologic: He is alert, awake, oriented to time and place and person. His is at the bedside. LABORATORIES: His hemoglobin and hematocrit is 9.1 and 27.7, white count 13.6, platelet count of 97,000. His sodium 140, potassium 3.1, chloride 100, bicarb 29, anion gap 13, BUN of 47, creatinine 2.6, glucose 118. Calcium 7.5, phosphorus 4.7, albumin of 2.4. IMPRESSION/PLAN: 1. Anemia. His EGD and colonoscopy have been negative for any sign of active bleeding. We will continue treatment with Iron C b.i.d. and multivitamin once daily. He will need that for 3 months. 2. Cellulitis of the lower extremity and the wound culture showing Pseudomonas and Staph species. He will continue antibiotics per the primary team. 3. GI prophylaxis with PPI. 4. Bowel regimen to continue. 5. We will be available if needed. The above plan discussed with patient and family at bedside. All questions answered. cc: MD Roderick Calzada MD Leroy F. Harris, MD
[2017-06-24] MEDS: CENTRUM SILVER PO SCH (15:48)
[2017-06-24] MEDS: ICAR-C PO SCH ×2 (15:48→21:43)
--- NOTE | 2017-06-24 16:23 | PROGRESS NOTE ---
DATE: 06/24/2017 TIME SEEN: 08:20. SUBJECTIVE: Mr. Dover is resting quietly in bed. His is at his bedside. He denies pain. He states he is feeling a little bit better. He continues to complain of some rib pain from his fall. OBJECTIVE: Most recent vital signs: Temperature 97.8 degrees, blood pressure 121/58, heart rate 60, respirations 18, he is on room air, last recorded saturation 97%. He has had 1795 in 10,575 out per Whatley catheter. LABORATORY DATA: Sodium 144, potassium 3.1, chloride 111, CO2 20, BUN 47, creatinine 2.6, glucose 118, anion gap 13, calcium 7.5, phosphorus 4.7, albumin 2.4, white count 13.6, hemoglobin 9.1, hematocrit 27.7, platelet count 97,000. Wound culture has grown gram-negative rods with Pseudomonas . PHYSICAL EXAMINATION: General: This is an 82-year-old, white male. He is currently resting in bed. He appears chronically ill. He is in no acute distress. Skin: Warm and dry. HEENT: Normocephalic, atraumatic. Conjunctivae pale. He has JED. Mucous membranes are dry. Neck: Supple. Trachea midline. No JVD. Cardiovascular: Regular rate and rhythm. He is without murmur or gallop. Lungs: Clear to auscultation anteriorly, equal excursion, diminished breath sounds at posterior bases. He remains on room air. Abdomen: Large, round, obese, soft, nontender. Positive bowel sounds. Colostomy remains in place with dark green bile. Genitourinary: Whatley catheter is in place. Adequate urine out. Extremities: Patient continues with 2+ lower extremity edema, 3+ to the upper extremities. His right lower extremity is greater than his left. Integumentary: Healing stages of ecchymoses to bilateral upper and lower extremities. Darkened eschar continues to the right foot toe area inner aspect of the malleolus. Neurological: He is alert to person and place. ASSESSMENT AND PLAN: 1. Acute kidney injury. Patient's baseline creatinine is 2.2. His creatinine continues to slowly improve. His IV fluids have been discontinued, these remain stable. He is taking p.o. intake well, adequate urine out. No indication for intervention. 2. Electrolytes. Patient continues with hypokalemia. We have replaced potassium supplement today. We will re-evaluate his labs in the a.m. 3. Acid-base balance. This remains stable. 4. Anemia. This remains low but stable. 5. Septic shock. Patient has not required any pressor support during his hospitalization. His blood pressure remains stable. Creatinine continues to improve. I would to like to thank you for allowing us to follow with this patient. Dictated by CHITO Rizo for Leonardo Mitchell MD Patient seen, data reviewed, discussed with Lance Taylor on 06/24/17. I agree with the above assessment and plan of care. cc: CHITO Rizo MD Timothy P. Weirich, MD [facility]
[2017-06-24] MEDS ORDERED: SODIUM CHLORIDE 0.9% 10 ML ONE (16:50)
[2017-06-24] MEDS: POTASSIUM CHLORIDE 20 MEQ/SWI 20 MEQ/100 ML IVPB IV SCH ×2 (16:57→19:31)
--- NOTE | 2017-06-24 17:05 | PROGRESS NOTE ---
DATE: 06/24/2017 Based on the data collected by my nurse practitioner, Nell Hackett, and my examination of the patient, I have formulated a plan of treatment which will be dictated by my nurse practitioner. She will be dictating what the plan of treatment is. cc: MD Roderick Ramos MD
--- NOTE | 2017-06-24 17:08 | PROGRESS NOTE ---
DATE: 06/24/2017 PRESENT ILLNESS: Mr. Dover has a cellulitis to his right lower extremity from a previous lawnmower accident. His culture has grown Pseudomonas, which is currently being treated by ID. MEDICATIONS: He is currently on daptomycin and we will continue that. Today we will change Zosyn to cefepime in consideration of his renal insufficiency. PHYSICAL EXAM: Vital Signs: Temp 98.6 degrees, heart rate 63, respiratory rate 18, blood pressure 107/58. Generally this is an ill-appearing elderly male, lying in bed , in no acute distress. He is awake, alert and oriented. HEENT: Pupils are equal, round, and reactive to light. Lungs: Respiratory rate is even and unlabored with lung sounds clear bilaterally. Diminished in the bases. Heart: Rate is irregular in the 80s. Pulses are weak to bilateral lower extremities. Edema is noted to all extremities, but worse to the upper extremities where he is having some weeping to the bilateral arms, and redness to left arm which is improved from yesterday. Abdomen: Soft and nontender with colostomy in place. Skin: Warm and dry with some bruising and edema. Legs are slightly less erythematous, but eschar noted to 1st and 2nd toe to the right foot. IV site to the right forearm without redness edema or drainage. LAB AND X-RAYS: WBC is 13.6, hemoglobin is 9.1, platelet count is 97,000, creatinine is 2.6, and GFR is 24. He has had a negative bone scan for osteomyelitis, but has grown Pseudomonas as well as gram-positive cocci to the right foot. ASSESSMENT AND PLAN: We will continue IV antibiotics of daptomycin as ordered and will change Zosyn to cefepime 1 g IV q. 12 hours to protect his renal function. The previous plans have been discussed with and recommended by Dr. Ruiz. COMORBIDITIES: Mr. Dover is an elderly patient with degenerative disk disease and a previous cellulitis to his right lower extremity. Dictated by CHITO Hoff for Scooter Ruiz MD cc: CHITO Hoff MD Timothy P. Weirich, MD [facility]ALTH[facility]
[2017-06-24] MEDS: MAXIPIME 1 GM in D5W 50 ML IV SCH (17:30)
[2017-06-24] MEDS: DESYREL PO SCH (21:43)
[2017-06-25] MEDS: MAXIPIME 1 GM in D5W 50 ML IV SCH ×2 (06:14→17:29)
[2017-06-25] MEDS: SYNTHROID PO SCH (06:14)
[2017-06-25] MEDS ORDERED: SODIUM CHLORIDE 0.9% 10 ML ONE ×2 (08:18→16:50)
--- NOTE | 2017-06-25 08:55 | PROGRESS NOTE ---
DATE: 06/25/2017 SUBJECTIVE: The patient is currently get upset and curses frequently about the care that he is getting and such. This is usually a sign of recovery. Unfortunately, he is not able to really comprehend that until he starts to move and do more for us, cannot send him home. I expressed this to him very succinctly in front of his , and he was aware that he needs to start making progress in order to go home, which is his ultimate desire. I told him that I would discontinue his Whatley catheter, and that he needed to get up in the chair today. He does not want to eat any "real food" because he does not like anything that they serve here. OBJECTIVE: Vital Signs: 97.9, 66, 17, 144/65, 96% saturated on room air. Lungs: Clear. Cardiovascular: Regular. Neuropsych: The patient is alert, oriented, conversive, and comments appropriately. Extremities: Appear to be unchanged from previous exam. LABORATORIES: I wrote the patient for laboratory holiday today; although, he claims that they came and stuck needles in him this morning. ASSESSMENT AND PLAN: 1. The patient's gastrointestinal bleed seemed to have stabilized. No active bleeding site has been found. 2. The infectious process in his legs are being handled by Dr. Ruiz. We need to design some type of outpatient regimen for him, so that I can get him home. 3. The patient's rheumatologic condition with chronic pain is being handled with appropriate medications. 4. The patient's renal function is headed towards its baseline. His last creatinine was 2.6. His baseline is around 2.3. He is not getting any IV fluids. PLAN: To remove Whatley catheter and have him set up in the chair. I would like for him to be eating more and to be a little bit more mobile. Unfortunately, his baseline is basically transferring to his powered wheelchair and moving about very cautiously in the house on his feet, but for only very short distances. cc: Roderick Norman MD
[2017-06-25] MEDS: PREDNISONE PO SCH (09:56)
[2017-06-25] MEDS: ICAR-C PO SCH ×2 (09:56→21:55)
[2017-06-25] MEDS: PROTONIX IV SCH ×2 (09:56→21:55)
[2017-06-25] MEDS: TRENTAL PO SCH ×3 (09:56→21:55)
[2017-06-25] MEDS: CENTRUM SILVER PO SCH (09:56)
[2017-06-25] MEDS: ZOLOFT PO SCH (09:56)
[2017-06-25] MEDS: HYDROCODONE/APAP 7.5-325/15 ML PO SCH ×3 (10:03→17:29)
--- NOTE | 2017-06-25 13:18 | PROGRESS NOTE ---
DATE: 06/25/2017 SUBJECTIVE: Patient is currently resting in bed. His is present at bedside. He denies any new complaints. He denies any nausea, vomiting, vomiting blood, passing blood in the stools. He denies any fevers, rigors, chills. He is feeling better. OBJECTIVE: Vitals: Temperature of 97.8 degrees, pulse rate of 78, respiratory rate 20, blood pressure 119/60, saturating 98% on room air. General Appearance: Moderately built, moderately nourished, lying in bed, in no acute distress. HEENT: Pale conjunctivae. No icterus. Neck: Supple. Abdomen: Soft. No guarding. No rebound. Right lower quadrant colostomy noted. Extremities: No cyanosis, clubbing. There is mild redness in the lower extremity and is being treated for cellulitis. Neurologic: He is alert, awake, and answers questions. LABS: His hemoglobin and hematocrit are 9.1 and 27.7, white count 13.6. Creatine kinase is 12. IMPRESSION AND PLAN: 1. Anemia. Will start on Iron C b.i.d. and multivitamin once daily and watch the hematocrit. 2. Gastrointestinal bleed. No more evidence of overt GI bleeding. EGD and colonoscopy were negative the bleeding. 3. Cellulitis in the lower extremities. Currently on antibiotics per Dr. Ruiz. 4. Gastrointestinal prophylaxis with PPIs. 5. Further recommendations to follow pending the hospital course. cc: MD Roderick Calzada MD [facility]
[2017-06-25] MEDS ORDERED: KLOR-CON PO ONE (15:10)
[2017-06-25] MEDS: CUBICIN 500 MG in NS 100 ML IV SCH (15:15)
--- NOTE | 2017-06-25 16:55 | PROGRESS NOTE ---
DATE: 06/25/2017 TIME SEEN: 0723. SUBJECTIVE: Mr. Dover is resting quietly in bed. Head of the bed is elevated. He is a little confused today, though he does denies pain. No increased work of breathing. OBJECTIVE: Vital signs: His most recent vital signs, his temperature last 97.8 , with a blood pressure 116/70, heart rate 62, respirations 14. He is on room air. Last recorded saturation 99%. He has had 750 in. He has had 1600 out, fecal device of 450 with adequate urine out per Whatley. Labs: Sodium is 144, potassium 3.1, chloride 111, CO2 20, BUN 47, creatinine 2.6, glucose 118. His anion gap is 13, calcium 7.5, phosphorus 4.7, albumin 2.5. White count 13.6, hemoglobin 9.1, hematocrit 27.7, with a platelet count of 97,000. PHYSICAL EXAMINATION: General: This is an 82-year-old white male. He is currently resting in bed. He is in no acute distress. Skin: Warm and dry. HEENT: Normocephalic, atraumatic. Conjunctivae pale. He has JED. Mucous membranes are dry. Neck: Supple. Trachea midline. No JVD. Cardiovascular: Regular rate and rhythm. He is without murmur or gallop. Lungs: Clear to auscultation anteriorly. Equal excursion. On room air. Abdomen: Large, round , soft, nontender. Positive bowel sounds. Genitourinary: Not inspected. Adequate urine out per Whatley catheter. Extremities: Have 2 to 3+ lower extremity edema. He does have 2+ upper extremity edema today, slightly improved. Integumentary: He has healing stages of ecchymoses to both bilateral upper and lower extremities. He has darkened eschar noted to the right foot, anterior aspect of the malleolus and 1st and 2nd toe. Neurological: He is alert to person and place. ASSESSMENT AND PLAN: 1. Acute kidney injury on chronic kidney disease stage 4. Patient's creatinine continues to slowly improve. It is down to 2.6 today. BUN is improving with IV fluids as noted. 2. Electrolytes. Patient has mild hypokalemia. We will replace with supplement potassium if that has not been ordered. 3. Acid-base balance. This remains stable. 4. Anemia. This is low but stable. 5. Altered mental status. This is improving. 6. Sepsis. Patient continues to be followed by primary care team and infectious disease. I would like to thank you for allowing us to follow with this patient. Dictated by CHITO Rizo for Leonardo Mitchell MD Patient seen, data reviewed, discussed with Lance Taylor on 06/25/17. I agree with the above assessment and plan of care. cc: CHITO Rizo MD Timothy P. Weirich, MD [facility]
--- NOTE | 2017-06-25 18:29 | PROGRESS NOTE ---
DATE: 06/25/2017 PRESENT ILLNESS: The patient has cellulitis of the legs. He also had a marked leukocytosis. MEDICATIONS: This is day 4 of treatment with daptomycin and Zosyn and then recently the Zosyn was changed to cefepime, so the patient has had a total now of treatment with the 2 drugs for 4 days. PHYSICAL EXAMINATION: Vital Signs: The temperature is 97.8, pulse 78, respirations 20, blood pressure 119/66. General: This is an ill-appearing, elderly male who is in no acute distress. Cardiovascular: Heart rate is regular. Lungs: Clear to auscultation. Abdomen: Soft and nontender. There is an ostomy in place. Extremities: Both legs are not edematous. They are no longer erythematous. There are eschars present on both legs. LAB AND X-RAY: There is no new lab or x-ray. COMORBIDITIES: The patient is elderly. He has had previously cellulitis of the legs. He also has degenerative disk disease. ASSESSMENT AND PLAN: I am going to repeat the patient's lab studies tomorrow and if the patient's white count remains normal, then I plan to stop his antibiotics. cc: MD Roderick Ramos MD
[2017-06-25] MEDS: DESYREL PO SCH (21:55)
[2017-06-26] MEDS: MAXIPIME 1 GM in D5W 50 ML IV SCH (06:14)
[2017-06-26] MEDS: SYNTHROID PO SCH (06:14)
[2017-06-26] MEDS ORDERED: INSULIN PEN NEEDLES ONE (08:09)
[2017-06-26] MEDS ORDERED: SODIUM CHLORIDE 0.9% 10 ML ONE (08:14)
[2017-06-26] MEDS: TRENTAL PO SCH (08:37)
[2017-06-26] MEDS: ZOLOFT PO SCH (08:37)
[2017-06-26] MEDS: CENTRUM SILVER PO SCH (08:37)
[2017-06-26] MEDS: PREDNISONE PO SCH (08:37)
[2017-06-26] MEDS: ICAR-C PO SCH (08:37)
[2017-06-26] MEDS: HYDROCODONE/APAP 7.5-325/15 ML PO SCH ×2 (08:38→13:46)
[2017-06-26] MEDS: PROTONIX IV SCH (08:50)
[2017-06-26 11:10] VITALS: BP 117/73
--- NOTE | 2017-06-26 12:00 | PROGRESS NOTE ---
DATE: 06/26/2017 SUBJECTIVE: He declined to have labs drawn this morning. He states he is feeling well and anticipates discharge today. OBJECTIVE: Vital Signs: Blood pressure 137/87, heart rate 94, respirations 19, afebrile. General: He is in no acute distress. Skin: Warm and dry. Conjunctivae are pink. Neck: Neck veins are not distended. Heart: Regular without gallops. Lungs: Have equal breath sounds. No crackles. Abdomen: Soft, nontender. Bowel sounds present. Extremities: Have 2+ edema. No clubbing or cyanosis. IMPRESSION: Acute kidney injury. He has had no labs in 48 hours. At that time, his labs are improving. Obviously, I would require chemistries in order to reassess his renal function. If he is otherwise ready for discharge, then he can certainly follow with us in the office if Dr. Norman desires this. cc: MD Roderick Jorge MD
[2017-06-26] MEDS ORDERED: PNEUMOVAX 23 IM ONE (13:23)
[2017-06-26] MEDS ORDERED: FLUZONE QUAD 2017-2018 SYRINGE IM ONE (13:23)
--- NOTE | 2017-06-26 14:16 | PROGRESS NOTE ---
DATE: 06/26/2017 PRESENT ILLNESS: The patient was admitted with cellulitis of the legs and leukocytosis. MEDICATIONS: This is day 5 of treatment with antibiotics which currently are daptomycin and cefepime. PHYSICAL EXAMINATION: Vital Signs: Temperature is 98.6 degrees, pulse 94, respirations 19, blood pressure 137/87. General: This is an ill-appearing, elderly male. He is in no acute distress. He is much more alert and is able to talk better. Extremities: All of his extremities look much better. The legs have some eschars on them but no erythema. Both arms are less swollen and also the erythema is fading. Lungs: Clear to auscultation. Cardiovascular: Heart rate is regular. Abdomen: Soft and nontender. An ostomy is in place. LAB AND X-RAY: The creatinine is 2.6. GFR is 24. There is no CBC for today. CPK is 12. COMORBIDITIES: The patient is elderly. He has degenerative disk disease. ASSESSMENT AND PLAN: The Dr. Norman and I have talked along with the patient and our plan is to send the patient home on doxycycline 100 mg p.o. every 12 hours and Levaquin 250 mg daily both for 10 days. The patient, when we sent him home before on oral antibiotics had a flare up with his disease. He came back in any as had leukocytosis, which is improving. We feel that it would be better to send him home on 2 oral antibiotics that cover the organisms that we grew from the patient's legs this time he was admitted. The patient will be seeing Dr. Norman in followup care. cc: MD Roderick Ramos MD
--- NOTE | 2017-06-27 09:24 | DISCHARGE SUMMARY ---
ADMISSION DATE: 06/21/2017 DISCHARGE DATE: 06/26/2017 DISCHARGE DIAGNOSES: 1. Hypotension. 2. Severe blood loss anemia. 3. Iron deficiency. 4. Acute renal failure. 5. Chronic renal failure stage 4. 6. Hypothyroidism. 7. Cellulitis of the right lower extremity with culture positive pseudomonas and staph species. OPERATIVE PROCEDURES: None. CONSULTATIONS: 1. Dr. Leonardo Mitchell. 2. Dr. Whalen. 3. Dr. Larsen. 4. Dr. Scooter Ruiz. HOSPITAL COURSE: This 82-year-old white male was readmitted to the hospital after several days . He was found to be markedly hypotensive and markedly anemic. He also had acute kidney injury on top of his chronic renal failure. He was admitted to the ICU and transfused multiple units of packed red cells to get his hemoglobin up to an appreciable range. He seemed to tolerate this well. After improved so did his blood pressure albeit slowly. Partly this was likely due to adrenal suppression from chronic steroids used for his polymyalgia rheumatica. The patient was transferred out of the unit and he underwent EGD as well as colonoscopy and no acute source of bleeding was found. During his last hospitalization he had been started on Plavix due to ischemic toes and this likely compounded the issue greatly. The patient's wounds on his right toes were again cultured and grew pseudomonas as well as a few staph species. Dr. Ruiz was consulted and had him on IV antibiotics throughout his hospitalization. He was given an outpatient regimen at the time of discharge. The patient's creatinine improved to a level of 2.6. At that point he started refusing to have blood drawn in the morning. Over the last 2 days of his hospitalization he did not have any lab work drawn, but we were only going on clinical grounds. We arranged for home health at the time of discharge for wound care and any other needs that the patient might have. The patient is to restart his pentoxifylline but not restart his Plavix. He will continue all other medications as previously except for a reduction in his prednisone to 10 mg daily. He has some sort of rheumatologic condition with elevated sedimentation rate but it does not seem to respond that well to low-dose steroids anyway. 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 The patient's thyroid numbers were a bit higher than normal during his hospitalization but could have been due just to his illness. We will recheck this on an outpatient basis. Dr. Ruiz sent him home on Levaquin and doxycycline. He will have home health and I will have followup with him in approximately 2 weeks. cc: Roderick Norman MD
--- NOTE | 2017-06-27 21:59 | PROGRESS NOTE ---
DATE: 06/26/2017 SUBJECTIVE: Feeling fine. No signs of any bleeding. He is breathing good. His cellulitis is getting better. OBJECTIVE: Vital Signs: Stable. Heart: Normal. Lungs: Normal. Abdomen: Soft. Nontender. The ostomy bag has no blood. Extremities: The cellulitis is better. IMPRESSION: 1. Hypotension, secondary to gastrointestinal bleed. 2. Severe blood loss anemia. 3. Iron deficiency. 4. Acute renal failure. 5. Hypothyroidism. 6. Cellulitis, positive to Pseudomonas and Staphylococcus. 7. Gastrointestinal prophylaxis. PLAN: We will continue management. We will keep him off blood thinners. He appears to be anxious to go home. We will see him as an outpatient. He did not have any one source of massive blood loss. It is probably chronic blood loss. cc: MD Roderick Cope MD
--- NOTE | 2017-06-27 22:00 | OPERATIVE NOTE ---
PROCEDURE DATE: 06/23/2017 PROCEDURE PERFORMED: Colonoscopy. PREOPERATIVE DIAGNOSIS: Gastrointestinal bleed. POSTOPERATIVE DIAGNOSIS: No lesions identified. DESCRIPTION OF PROCEDURE: After informed consent and adequate intravenous sedation, the scope introduced into the ostomy and advanced as far as I could go. Patient's family is unable to confirm whether it is colostomy or ileostomy, but it appears to be at ileum. There are occasional diverticula. I did not see any fresh or old blood. No angiodysplasias. The scope was withdrawn. The patient tolerated the procedure well, without any immediate complications. I think the bleeding is slower and sustained on his blood thinners. Will keep him off that. I talked to the family, and they understand. We will see him as an outpatient as needed. We will follow him here. -3 cc: MD Roderick Cope MD
== END 2017-06-26 14:16 | disposition home health service (06) ==
LOC: ED 00:18 → ICU 02:34 → SUPCPDRO 02:34 → SUATTDRO 02:34 → 3N 06-23 18:25
PROVIDERS: ADMIT Internal Medicine; ATTEND Internal Medicine
PROC: [UNRECOGNIZED PROCEDURE] (2017-06-23 13:03)